=== PATIENT | female | born 1965 | race African-American/Black ===

== ENCOUNTER 2016-11-23 12:33 | Emergency (ER) ==
[2016-11-23 12:40] VITALS: BP 138/70
--- NOTE | 2016-11-23 14:03 | PROVIDER DOCUMENTATION ---
HPI-Chest Pain - General Source: patient - History of Present Illness-CP Location: reports: other (left anterior) Chest Pain Radiation: reports: no radiation Quality of Pain: reports: dull Severity in ED: moderate Onset/Duration: 2 days ago Timing: still present Nitro Today/Relief: no nitro taken today Aspirin Treatment Today: no aspirin today Similar Symptoms Previously?: No Recently Seen Here or By Another Healthcare Provider: Yes <Glory Jean - Last Filed: 11/23/16 15:30> <Cr Felipe - Last Filed: 11/23/16 15:39> - General Chief Complaint: B/P Problems Stated Complaint: B/P PROBLEMS Time Seen by Provider: 11/23/16 13:34 Allergies/Adverse Reactions: Patient Allergies Allergy/AdvReac Type Severity Reaction Status Date / Time aspirin Allergy ABDOMINAL Verified 02/03/16 09:16 PAIN diphenhydramine HCl * Allergy HIVES Verified 02/03/16 09:16 [From Benadryl] hydromorphone HCl * Allergy ITCHING Verified 02/03/16 09:16 [From Dilaudid] ibuprofen [From Motrin] Allergy ABDOMINAL Verified 02/03/16 09:16 PAIN Iodinated Contrast Media - Allergy HIVES Verified 02/03/16 09:16 Oral and ketorolac tromethamine * Allergy DIARRHEA Verified 02/03/16 09:16 [From Toradol] latex Allergy RASH Verified 02/03/16 09:16 Penicillins Allergy ITCHING Verified 02/03/16 09:16 Sulfa (Sulfonamide Allergy HIVES Verified 02/03/16 09:16 Antibiotics) tramadol HCl * [From Ultram] Allergy ITCHING Verified 02/03/16 09:16 Home Medications: Home Medication List Medication Instructions Recorded Confirmed Last Taken Type Alprazolam [Xanax] 1 mg PO QHS 07/20/15 02/03/16 10/18/15 12:00 History Hydrocodone/Acetaminophen [[place] 1 each PO Q6HR PRN 09/24/15 02/03/16 10/18/15 12:00 History 10-325 Tablet] Insulin Humulin 70/30 [Humulin 15 unit SQ BID 10/18/15 02/03/16 12/21/15 05:30 History 70/30] Clonidine [Catapres] 0.1 mg PO TID 02/03/16 02/03/16 Unknown History Guaifen/Dextromethorphan/PE 1 each PO TID #30 tablet 09/08/16 Unknown Rx [Deconex Dmx Tablet] Guaifenesin/Codeine Phosphate 10 ml PO Q4HR PRN #120 liquid 11/06/16 Unknown Rx [Cheratussin AC Syrup] Amlodipine Besylate [Norvasc] 10 mg PO 11/23/16 11/22/16 History - History of Present Illness-CP Nature of Presenting Problem: Pt presents in Triage with cc of Blood pressure problems on Exam pt doesn't mention blood pressure but rather reports a CC of chest pain left anterior x 2 days constant dull pain. Reports started at rest non radiating feels better while laying down. Reports headache,cough,vomiting, abd pain that is dull epigastric intermittent. Denies ent symptoms,urinary symptoms,sob,f,n. Reports 1 day of dark stools and unable keep food down.. Seen on November 16 wanted blood work done pt came today but was unable to do it so she came to ER. (Glory Jean) Review of Systems - Adult - REVIEW OF SYSTEMS - ADULT Constitutional: denies: chills, fever, fatique Eyes: reports: no symptoms reported Ears, Nose, Mouth & Throat: denies: ear pain, sinus problem, throat pain Cardiovascular: reports: chest pain. denies: irregular heart rate, orthopnea, syncope Respiratory: reports: cough. denies: shortness of breath, wheezing Gastrointestinal: reports: abdominal pain, vomiting. denies: diarrhea, difficulty swallowing, frequent heartburn, nausea, poor appetite Genitourinary: reports: no symptoms reported Musculoskeletal: reports: no symptoms reported Integumentary: reports: no symptoms reported Neurological: reports: headache/migraines. denies: dizziness/vertigo, paresthesia, seizure Psychiatric: reports: no symptoms reported Endocrine: reports: no symptoms reported Hematologic/Lymphatic: reports: no symptoms reported Allergic/Immunologic: reports: no symptoms reported All Other Systems: Reviewed and Negative <Glory Jean - Last Filed: 11/23/16 15:30> Past History - Adult - PAST MEDICAL HISTORY-ADULT Review of Records: reports: Nursing Assessment Review Major Childhood Illnesses: reports: denies history Cardiovascular: reports: cardiac disease, HTN Respiratory: reports: denies history Gastrointestinal: reports: denies history Obstetrical/Gynecological: reports: other (lmp 2 weeks ago) Genitourinary: reports: denies history Musculoskeletal: reports: chronic pain (back) Neurological: reports: CVA Psychiatric: reports: anxiety Endocrine/Immune: reports: Diabetes Other Conditions: reports: denies history - PRIOR SURGERIES/PROCEDURES Surgical/Procedure History: reports: appendectomy, cholecystectomy, hysterectomy , other (left ovary) - PRIOR HOSPITALIZATIONS Prior Hospitalizations: reports: for other non-related - IMMUNIZATION STATUS Childhood Immunizations: See Nurse Assessment Flu Vaccine: See Nurse Assessment - FAMILY HISTORY Family History: reviewed, not pertinent - SOCIAL HISTORY Smoking: cigarettes, less than 1 pack/day Provider spent 3-5 mins advising pt. on dangers of tobacco.: Discussed manners to quit use, and f/u contacts for add'l counseling. Substance Use: alcohol <Glory Jean - Last Filed: 11/23/16 15:30> Physical Exam-General - PHYSICAL EXAM-ADULT Initial Vital Signs Reviewed: Yes - CONSTITUTIONAL General Appearance: alert, no apparent distress. negative: appears well - EYES Eyes: PERRL/EOMI - HEAD, EARS, NOSE, MOUTH & THROAT HENMT: moist mucous membranes, normal ENT inspection, TMs normal, pharynx normal - RESPIRATORY Respiratory: chest non-tender, lungs clear, normal breath sounds, no pleuratic chest pain, no respiratory distress, no accessory muscle use - CARDIOVASCULAR Cardiovascular: regular rate, rhythm - GASTROINTESTINAL (ABDOMEN) Abdominal Exam: soft, no organomegaly, no pulsatile mass, tenderness (ttp lower abd). negative: mass, hepatomegaly, spleenomegaly - MUSCULOSKELETAL Back Exam: normal inspection, no CVA tenderness, no vertebral tenderness Extremity: normal range of motion, non-tender - SKIN Integumentary: normal color, normal turgor, warm/dry - NEUROLOGIC Neurologic: supervisor finish end II-XII nml as tested, grossly normal, no motor/sensory deficits - PSYCHIATRIC Psych/Mental Status: normal mood/affect, normal thought content, normal thought process, oriented x 3 <Glory Jean - Last Filed: 11/23/16 15:30> Progress - EKG 1 Time of EKG reading by physician:: 14:03 EKG Read and Signed by:: Cr Felipe EKG Interpretation (*Must complete 3 of following elements*): Abnormal (ST and Twave abnormality consider inferior ischemia) Rate: 74 Rhythm: nsr [place]: normal QRS: normal <Glory Jean - Last Filed: 11/23/16 15:30> <Cr Felipe - Last Filed: 11/23/16 15:39> - PLAN OF CARE/RESULTS Progress/Plan/Lab Results: Vital Signs - 24 hr 11/23/16 12:37 Temperature 98.3 F Pulse Rate 86 Respiratory 20 Rate Blood Pressure 138/70 O2 Sat by Pulse 100 Oximetry Laboratory Tests 11/23/16 12:48 POC Glucose 315 H D Orders Category Date Time Status CHEST-2 VIEWS [RAD] Stat Exams 11/23/16 13:55 Ordered CBC WITH DIFF [HEME] Stat Lab 11/23/16 13:55 Ordered COMPREHENSIVE METABOLIC PANEL [CHEM] Stat Lab 11/23/16 13:[address] W/POSS RFLX CULT [URINALYSIS] Stat Lab 11/23/16 13:55 Uncollected EKG [EKG] Stat Ther 11/23/16 13:57 Ordered Pt was sent from outpatient to have Blood pressure checked. Pt didnt inform nurses that she already had blood work,cxray and ekg done but that she didn't feel good. EKG labs and cxray was reviewed by MD Felipe Laboratory Tests 11/23/16 11/23/16 12:48 14:24 POC Glucose 315 H D Urine Source CLEAN CATCH Urine Color YELLOW Urine Clarity CLEAR Urine pH 5.0 Ur Specific [place] 1.015 Urine Protein TRACE A Urine Ketones NEGATIVE Urine Blood NEGATIVE Urine Nitrite NEGATIVE Urine Bilirubin NEGATIVE Urine Urobilinogen NORMAL Urine Microscopic RBC <10 Urine WBC 2+ A Urine Microscopic WBC 10-20 A Ur Epithelial Cells >10 A Urine Bacteria 1+ Urine Yeast PRESENT Urine Glucose 3+(500 mg/dL) A (Glory Jean) Urine specimen is heavily contaminated. (Cr Felipe) Departure - Departure Time of Disposition Order: 15:30 Certified Medical Emergency: Emergent <Glory Jean - Last Filed: 11/23/16 15:30> - Departure Time of Disposition Order: 15:36 Certified Medical Emergency: Emergent <Cr Felipe - Last Filed: 11/23/16 15:39> - Departure DIAGNOSIS: Malaise Disposition: HOME 01 Condition: Stable Additional Instructions: ED Follow Up Instructions: You have been treated by a care provider in the Emergency Department. These instructions are being provided to you so you can have an understanding of how to care for yourself upon discharge. Upon discharge from the Emergency Department, you are responsible for making arrangements for follow-up care by a physician of your choice. Take all prescribed medications as directed. Return to the Emergency Department immediately for any new or worsening symptoms. You may call the Physician Referral phone number at [phone] to obtain a list of Physicians who are taking new patients. Referrals: Chapin Avina MD [Primary Care Provider] - Attestation - Scribe Verification/Attestation Scribe:: Glory Jean Acting as Scribe for:: Cr Felipe Scribe documention review:: This chart was documented by a scribe and accurately reflects the service the provider performed and the decisions made by the provider. <Glory Jean - Last Filed: 11/23/16 15:30> Physician Attestation - Physician Attestation I, the provider, attest to the following statement:: Cr Felipe Physician documentation Attestation:: This documentation recorded by the scribe accurately reflects the service I personally performed and the decisions made by me. <Cr Felipe - Last Filed: 11/23/16 15:39>
[2016-11-23 14:31] LABS: URINE SOURCE CLEAN CATCH
--- NOTE | 2016-11-23 14:31 | EKG Report ---
Test Performed on : 11/23/2016 2:03:06 PM Test Reason : CP Blood Pressure : / mmHG Vent. Rate : 074 BPM Atrial Rate : 074 BPM P-R Int : 190 ms QRS Dur : 096 ms QT Int : 430 ms P-R-T Axes : 058 005 -73 degrees QTc Int : 477 ms Normal sinus rhythm. ST & T wave abnormality, consider inferior ischemia Prolonged QT Abnormal ECG When compared with ECG of 23-NOV-2016 11:48, (Unconfirmed) Borderline criteria for Anterior infarct are no longer present Unconfirmed Result
[2016-11-23 14:41] LABS: BILIRUBIN URINE NEGATIVE (NEGATIVE); BLOOD URINE NEGATIVE (NEGATIVE); CLARITY CLEAR (CLEAR); COLOR YELLOW; LEUKOCYTES URINE 2+ (NEGATIVE); NITRITE URINE NEGATIVE (NEGATIVE); PROTEIN URINE TRACE mg/dL (NEGATIVE); SP GRAVITY URINE 1.015; UROBILINOGEN URINE NORMAL
[2016-11-23 14:55] LABS: URINE EPITHELIAL CELLS >10 /HPF (<10); URINE RBC <10 /HPF (<10)
[2016-11-23 14:56] LABS: URINE CULTURE PL NEEDED? YES
== END 2016-11-23 16:05 | disposition home or self-care (01) ==
LOC: P.ED 12:33
DX: R53.81 Other malaise (principal); R94.31 Abnormal electrocardiogram [ECG] [EKG]; R07.89 Other chest pain; R51 Headache; R05 Cough; R11.10 Vomiting, unspecified; R10.13 Epigastric pain; R19.5 Other fecal abnormalities; R10.819 Abdominal tenderness, unspecified site; I10 Essential (primary) hypertension; G89.29 Other chronic pain; M54.9 Dorsalgia, unspecified; E11.9 Type 2 diabetes mellitus without complications; F41.9 Anxiety disorder, unspecified; F17.210 Nicotine dependence, cigarettes, uncomplicated; Z79.4 Long term (current) use of insulin; Z79.899 Other long term (current) drug therapy; Z71.6 Tobacco abuse counseling
CPT/HCPCS: 81001; 82948; 87088; 93005; 99283

== ENCOUNTER 2017-05-07 13:19 | Inpatient (IN) ==
[2017-05-07 15:34] LABS: BASO% 0.2 % (0.0-0.8); EOS# 0.01 X1000 (0.0-0.7); HEMATOCRIT 41.7 % (37.0-47.0); HEMOGLOBIN 14.5 g/dL (12.0-16.0); IMM GRAN# 0.07 X1000 (0.0-0.04); IMM GRAN% 0.3 % (0.0-0.5); LYMPH# 1.64 X1000 (1.2-3.4); LYMPH% 6.1 % (20.5-51.1); MANUAL DIFF NEEDED? NO; MCH 27.7 PG (27-31); MCHC 34.8 g/dL (33-37); MCV 79.6 FL (81-99); MONO# 1.01 X1000 (0.11-0.59); MONO% 3.8 % (1.7-9.3); MPV 11.7 FL (7.4-10.4); NEUT% 89.6 % (42.2-75.2); PLT 234 X1000 (130-400); RBC 5.24 XMIL (4.2-5.4)
[2017-05-07] MEDS ORDERED: ZOFRAN IV ONE (15:44)
[2017-05-07] MEDS ORDERED: NS 1,000 ML IV ONE (15:44)
[2017-05-07 15:53] LABS: ALBUMIN 4.8 g/dL (3.5-5.0); CALCIUM 10.1 mg/dL (8.8-10.2); POTASSIUM 3.5 mmol/L (3.5-5.1); TOTAL BILIRUBIN 0.5 mg/dL (0.20-1.00); TOTAL PROTEIN 10.3 g/dL (6.3-8.3)
[2017-05-07] MEDS ORDERED: HUMULIN R IV ONE (15:59)
[2017-05-07 16:14] LABS: BE 9.2 mmoll (-3.0-3.0); BLOOD TYPE ARTERIAL; METHB 1.4 % (0.0-1.5); O2(CT) 18.9 mL/dL (15.0-23.0); PCO2(98.6) 43 mmHg (35-45); PO2(98.6) 60 mmHg (60-100); SAMPLE BLOOD; SAO2 95.2 % (95.0-100.0); THB 14.7 g/dL (11.5-17.4)
[2017-05-07 16:18] LABS: ALLEN TEST YES; DRAW SITE L RADIAL; MODALITY ROOM AIR
[2017-05-07] MEDS ORDERED: LABETALOL IV ONE (16:31)
--- NOTE | 2017-05-07 16:55 | PROVIDER DOCUMENTATION ---
This chart was entered by Jaquelin Bragg Scribe, acting as scribe for Quique Espinosa MD. HPI-General Adult - General Chief Complaint: N/V/D Stated Complaint: VOMITING Time Seen by Provider: 05/07/17 14:56 Source: patient Allergies/Adverse Reactions: Patient Allergies Allergy/AdvReac Type Severity Reaction Status Date / Time aspirin Allergy ABDOMINAL Verified 04/24/17 12:31 PAIN diphenhydramine HCl * Allergy HIVES Verified 04/24/17 12:31 [From Benadryl] hydromorphone HCl * Allergy ITCHING Verified 04/24/17 12:31 [From Dilaudid] ibuprofen [From Motrin] Allergy ABDOMINAL Verified 04/24/17 12:31 PAIN Iodinated Contrast- Oral and Allergy HIVES Verified 04/24/17 12:31 IV Dye ketorolac tromethamine * Allergy DIARRHEA Verified 04/24/17 12:31 [From Toradol] latex Allergy RASH Verified 04/24/17 12:31 Penicillins Allergy ITCHING Verified 04/24/17 12:31 Sulfa (Sulfonamide Allergy HIVES Verified 04/24/17 12:31 Antibiotics) tramadol HCl * [From Ultram] Allergy ITCHING Verified 04/24/17 12:31 Home Medications: Home Medication List Medication Instructions Recorded Confirmed Last Taken Type Clonidine [Catapres] 0.3 mg PO TID 02/03/16 04/24/17 04/24/17 07:00 History Amlodipine Besylate [Norvasc] 20 mg PO DAILY 11/23/16 04/24/17 04/24/17 07:00 History - History of Present Illness -Gen Adult Nature of Presenting Problems: Patient is 52 year old female presents to the ED with nausea, vomiting and diarrhea. Patient states symptoms have been present since this am. Patient denies abdominal pain. Patient states fever and chills. Location of Pain/Injury: reports: none Pain Radiation: reports: no radiation Quality of Pain: reports: none Severity: reports: mild Onset/Duration: reports: this morning Timing: reports: still present Context/Activities at Onset: reports: light activity Modifying Factors: improves with: nothing Associated Symptoms: reports: diarrhea, nausea, vomiting. denies: anxiety, arm pain, back/neck pain, chest pain, constipation, cough, diaphoresis, dizziness, EENT symptoms, fatigue, fever/chills, genitourinary problems, headaches, heartburn, joint pain, loss of appetite, malaise, muscle aches, sinus congestion /drainage, rash, seizure, shortness of breath, sensory/motor loss, pain with inspiration, swelling/mass in abdomen, syncope, weakness, trouble walking Similar Symptoms Previously?: Yes (present since this am ) Recently seen or treated by another doctor?: No Review of Systems - Adult - REVIEW OF SYSTEMS - ADULT Constitutional: reports: no symptoms reported Eyes: reports: no symptoms reported Ears, Nose, Mouth & Throat: reports: no symptoms reported Cardiovascular: reports: no symptoms reported Respiratory: reports: no symptoms reported Gastrointestinal: reports: diarrhea, nausea, vomiting. denies: abdominal pain Genitourinary: reports: no symptoms reported Musculoskeletal: reports: no symptoms reported Integumentary: reports: no symptoms reported Neurological: reports: no symptoms reported Psychiatric: reports: no symptoms reported Endocrine: reports: no symptoms reported Hematologic/Lymphatic: reports: no symptoms reported Allergic/Immunologic: reports: no symptoms reported All Other Systems: Reviewed and Negative Past History - Adult - PAST MEDICAL HISTORY-ADULT Review of Records: reports: Nursing Assessment Review, Medications Reviewed, Social history reviewed & non-contributory. Major Childhood Illnesses: reports: denies history Cardiovascular: reports: cardiac disease, HTN, [place] Respiratory: reports: denies history Gastrointestinal: reports: denies history Obstetrical/Gynecological: reports: other (lmp 2 weeks ago) Genitourinary: reports: denies history Musculoskeletal: reports: chronic pain (back) Neurological: reports: CVA Psychiatric: reports: anxiety Endocrine/Immune: reports: Diabetes Other Conditions: reports: denies history - PRIOR SURGERIES/PROCEDURES Surgical/Procedure History: reports: appendectomy, cholecystectomy, hysterectomy , other (left ovary) - PRIOR HOSPITALIZATIONS Prior Hospitalizations: reports: for other non-related - IMMUNIZATION STATUS Childhood Immunizations: See Nurse Assessment Flu Vaccine: See Nurse Assessment - FAMILY HISTORY Family History: reviewed, not pertinent - SOCIAL HISTORY Smoking: cigarettes, less than 1 pack/day Provider spent 3-5 mins advising pt. on dangers of tobacco.: Discussed manners to quit use, and f/u contacts for add'l counseling. Substance Use: alcohol, marijuana Alcohol Use Frequency: occasionally Number of drinks per typical drinking period:: 2 drinks Living Situation: family Physical Exam-General - PHYSICAL EXAM-ADULT Initial Vital Signs Reviewed: Yes - CONSTITUTIONAL General Appearance: alert, no apparent distress. negative: lethargic, slow to respond - EYES Eyes: PERRL/EOMI, pink conjunctivae. negative: pale conjunctivae, sunken eyes - HEAD, EARS, NOSE, MOUTH & THROAT HENMT: normocephalic/atraumatic, moist mucous membranes, normal ENT inspection. negative: angioedema, hearing deficit - NECK Neck: non-tender, normal inspection. negative: lymphadenopathy, tender lateral - RESPIRATORY Respiratory: chest non-tender, lungs clear, normal breath sounds. negative: crackles, rhonchi - CARDIOVASCULAR Cardiovascular: normal peripheral pulses, regular rate, rhythm. negative: bradycardia, tachycardia - GASTROINTESTINAL (ABDOMEN) Abdominal Exam: normal bowel sounds, non tender, soft. negative: distended, rebound - LYMPHATIC Lymphatic: no adenopathy. negative: enlargement, streaking - MUSCULOSKELETAL Back Exam: normal inspection. negative: ecchymosis, muscle spasm Extremity: normal range of motion, normal inspection. negative: deformity, erythema, swelling - SKIN Integumentary: normal color, normal turgor, warm/dry. negative: ecchymosis, erythema, swelling - NEUROLOGIC Neurologic: grossly normal. negative: aphasia, facial droop - PSYCHIATRIC Psych/Mental Status: normal mood/affect, oriented x 3. negative: paranoid, tearful Progress - PLAN OF CARE/RESULTS Progress/Plan/Lab Results: Vital Signs - 8 hr 05/07/17 13:28 Temperature 98 F Pulse Rate 114 H Respiratory Rate 18 O2 Sat by Pulse Oximetry 100 Orders Category Date Time Status Saline Loc DIRECTED Care 05/07/17 14:39 Active NPO Diet 05/07/17 14:39 Active AMYLASE [CHEM] Stat Lab 05/07/17 14:39 Ordered CBC WITH ELECTRONIC DIFF [HEME] Stat Lab 05/07/17 14:39 Ordered COMPREHENSIVE METABOLIC PANEL [CHEM] Stat Lab 05/07/17 14:39 Ordered LIPASE [CHEM] Stat Lab 05/07/17 14:[address] W/POSS RFLX CULT [URINALYSIS] Stat Lab 05/07/17 14:39 Uncollected URINE DRUG SCREEN PL Stat Lab 05/07/17 14:39 Uncollected Result Diagrams: 05/07/17 15:20 05/07/17 15:20 - CONSULTS/PCP/HOSPITALIST Notification #1 *Consult/PCP/Hospitalist*: Dr. Mantilla Time Discussed: 16:51 Consult Disposition: Will see in ED, Admit Departure - Departure Date of Disposition Decision: 05/07/17 Time of Disposition Decision: 16:51 DIAGNOSIS: Renal failure, Hyperglycemia, Nausea & vomiting Disposition: ADMITTED INPATIENT 09 Certified Medical Emergency: Emergent Condition: Stable Referrals and Follow-Ups: Chapin Avina MD [Primary Care Provider] - - Critical Care Note This patient required my direct & personal management of CC.: Yes Total Time (mins): 30 Critical Care Statement: This patient required my direct personal management to treat or rule out processes, the absence of which, could potentiallly result in sudden, clinically significant life or limb threatening deterioration. Attestation - Physician/ KATE Attestation Patient care was provided by Advanced Practice Provider:: No The physician spent face to face time with patient:: Yes Advanced Practice Provider documentation review:: Supervising physician onsite and consulted in the evaluation and care of this patient. The physician did have a face to face encounter with the patient. This chart was documented by the indicated scribe, (Jaquelin Bragg Scribe) and accurately reflects the services I performed and decisions made by me, Quique Espinosa MD, as attested by the provider's signature.
--- NOTE | 2017-05-07 17:25 | Diag Imaging Result Doc PS360 ---
EXAM: CT RENAL STONE SEARCH HISTORY: N/V/leukocytosis TECHNIQUE: CT abdomen and pelvis without contrast. Dose reduction protocol. COMPARISON: 10/18/2015 FINDINGS: Suboptimal exam without oral and intravenous contrast. There is an 18 mm nodule inferiorly in the left lung. I believe this is anteriorly in the left lower lobe. This was present on the prior exam and is similar to the prior study. There is thickening to the wall of the distal esophagus. The gallbladder has been removed. Normal noncontrasted liver. The spleen is small. No abnormality to the pancreas. Normal adrenal glands. No renal stones. No hydronephrosis. No aortic aneurysm. No bowel obstruction. Urinary bladder is distended and appears normal. The uterus has been removed. No abscess. IMPRESSION: 1.Stable left lower lobe pulmonary nodule 2.Thickening to the wall of the distal esophagus which may simply be related to esophagitis. Further workup recommended. 3.Cholecystectomy 4.No renal stones or hydronephrosis 5.Hysterectomy Electronically signed by Coleman Connolly 05/07/2017 5:22 PM
--- NOTE | 2017-05-07 17:26 | Diag Imaging Result Doc PS360 ---
EXAM: CHEST-PORTABLE HISTORY: N/V/Leukocytosis TECHNIQUE: AP COMPARISON: 11/23/2016 FINDINGS: The lungs are well expanded. The heart is not enlarged. The vessels are not distended. No consolidation. There are two nodules in the lower left lung. These were present on the prior exam and have not increased in size. Mild scoliosis. IMPRESSION: No pneumonia. Electronically signed by Coleman Connolly 05/07/2017 5:23 PM
[2017-05-07] MEDS ORDERED: APRESOLINE IV ONE (17:35)
[2017-05-07] MEDS ORDERED: ZOFRAN IV PRN (18:06)
[2017-05-07] MEDS ORDERED: SODIUM CHLORIDE 0.9% INJ SCH (18:15)
[2017-05-07] MEDS ORDERED: APRESOLINE IV PRN (18:49)
[2017-05-07 18:59] LABS: URINE CULTURE PL NEEDED? NO
[2017-05-07 19:13] LABS: UR AMPHETAMINES QUAL NONE DETECTED (NONE DETECT); UR BARBITUATES QUAL NONE DETECTED (NONE DETECT)
[2017-05-07 19:14] LABS: UR BENZODIAZEPIN QUAL PRESUMPTIVE POSITIVE (NONE DETECT); UR CANNABINOIDS QUAL PRESUMPTIVE POSITIVE (NONE DETECT); UR COCAINE QUAL NONE DETECTED (NONE DETECT); UR MDMA QUAL NONE DETECTED (NONE DETECT); UR METHADONE QUAL NONE DETECTED (NONE DETECT); UR METHAMPHETAMINE QUAL NONE DETECTED (NONE DETECT); UR OPIATES QUAL PRESUMPTIVE POSITIVE (NONE DETECT); UR OXYCODONE QUAL NONE DETECTED (NONE DETECT); UR PCP QUAL NONE DETECTED (NONE DETECT); UR TCA QUAL NONE DETECTED (NONE DETECT)
[2017-05-07 19:18] LABS: BILIRUBIN URINE NEGATIVE (NEGATIVE); BLOOD URINE 3+ (NEGATIVE); CLARITY CLEAR (CLEAR); COLOR YELLOW; LEUKOCYTES URINE TRACE (NEGATIVE); NITRITE URINE NEGATIVE (NEGATIVE); PH URINE 6.5; PROTEIN URINE 2+(100 mg/dL) mg/dL (NEGATIVE); UROBILINOGEN URINE NORMAL
[2017-05-07 19:19] LABS: URINE EPITHELIAL CELLS <10 /HPF (<10); URINE RBC <10 /HPF (<10); URINE SOURCE CLEAN CATCH; URINE WBC <10 /HPF (<10)
[2017-05-07] MEDS: LEVAQUIN 500 MG/D5W 500 MG/100 ML IVPB IV SCH (20:06)
[2017-05-07] MEDS: NS 1,000 ML IV SCH (20:06)
[2017-05-07] MEDS: CATAPRES PO SCH (20:07)
[2017-05-07] MEDS: PROTONIX IV SCH (20:07)
[2017-05-07] MEDS: NORVASC PO SCH (20:08)
[2017-05-07] MEDS: HUMALOG DOSE (PARKWAY) SUBQ SCH (21:59)
[2017-05-08] MEDS: CATAPRES PO SCH ×3 (02:32→18:03)
--- NOTE | 2017-05-08 03:55 | PROGRESS NOTE ---
DATE: 05/07/2017 ADDENDUM: Patient was admitted. She was seen in the ER. The care plan discussed with nurse practitioner. Patient will be admitted, IV fluids, antibiotics. She is having some abdominal pain and diffuse tenderness, occasional chills. Further orders as needed. cc: Herb Mantilla MD
[2017-05-08] MEDS: TYLENOL PO PRN ×3 (04:57→20:51)
[2017-05-08] MEDS: NS 1,000 ML IV SCH ×3 (06:10→16:32)
[2017-05-08 06:25] LABS: HEMATOCRIT 38.3 % (37.0-47.0); HEMOGLOBIN 12.8 g/dL (12.0-16.0); MCH 26.9 PG (27-31); MCHC 33.4 g/dL (33-37); MCV 80.6 FL (81-99); MPV 11.5 FL (7.4-10.4); RBC 4.75 XMIL (4.2-5.4)
[2017-05-08] MEDS: HUMALOG DOSE (PARKWAY) SUBQ SCH ×4 (06:31→20:47)
[2017-05-08 06:42] LABS: ALBUMIN 4.2 g/dL (3.5-5.0); CALCIUM 9.6 mg/dL (8.8-10.2); MAGNESIUM 1.7 mg/dL (1.5-2.7); POTASSIUM 3.3 mmol/L (3.5-5.1); TOTAL BILIRUBIN 0.5 mg/dL (0.20-1.00); TOTAL PROTEIN 8.8 g/dL (6.3-8.3)
[2017-05-08] MEDS: NORVASC PO SCH (09:51)
--- NOTE | 2017-05-08 16:14 | PROGRESS NOTE ---
DATE: 05/08/2017 SUBJECTIVE: Ms. Rivas is sitting up in the bed, watching TV. She has no complaints at present. She denies any further nausea, vomiting or diarrhea. No abdominal pain. No issues. OBJECTIVE: Vital Signs: Blood pressure is 169/79 with a heart rate of 100. Respirations are 20, temperature is 98.4 oral with room air saturations of 100%. Cardiovascular: Regular rate and rhythm. S1, S2 appreciated. Pulmonary: Breath sounds are clear. No increased work of breathing noted. Gastrointestinal: Abdomen is soft, nondistended, nontender with bowel sounds in all 4 quadrants. Extremities: No clubbing, cyanosis, or edema. Calves are nontender. Pulses are palpable x4. Neurologic: She is alert and oriented x3 with cranial nerves 2-12 grossly intact. DIAGNOSTICS: WBC is 26.9, with a hemoglobin of 12.8, hematocrit 38.3, and platelets of 209. Sodium is 139, potassium 3.3, BUN 30, creatinine 1.8 with glucose ranging from 190-280. Alkaline phosphatase has decreased to 130 with blood cultures pending. ASSESSMENT AND PLAN: 1. Nausea, vomiting and diarrhea. This has improved. She has had no further nausea or vomiting. She has had 1 episode of diarrhea. We will continue to follow. 2. Acute kidney injury. Creatinine has decreased to 1.8 and review of her labs, she has been 1.2- 1.6 over the last 3 years. She is 1.8 today. We will continue with gentle hydration renal dose any medications and trend labs. 3. Hypertension. We will continue her home medications. 4. Diabetes mellitus. We will continue with pattern blood glucose with sliding scale insulin. 5. Deep vein thrombosis prophylaxis. Will continue with sequential compression devices. 6. Gastrointestinal prophylaxis, Protonix. 7. We will trend labs in the morning. Dictated by LEEANNA Mathews for Herb Mantilla MD cc: LEEANNA Mathews MD
--- NOTE | 2017-05-08 17:13 | HISTORY AND PHYSICAL ---
CHIEF COMPLAINT: Nausea, vomiting and diarrhea. HISTORY OF PRESENT ILLNESS: This is a 52-year-old female who presented to the emergency room complaining of nausea, vomiting and diarrhea that started earlier in the day. She does complain of subjective fevers. She denies any known sick contacts. Renal CT was performed in the emergency room which revealed thickening to the wall of the distal esophagus which may represent esophagitis. Otherwise essentially negative. She was noted to have a white count of 26 with a creatinine of 2 and blood sugars are ranging in the 250-480 range. She was given IV fluids, IV insulin and admitted for further evaluation and treatment. PAST MEDICAL HISTORY: Diabetes mellitus type 2, COPD, known CAD, hypertension history of CVA. PAST SURGICAL HISTORY: Cholecystectomy and hysterectomy. SOCIAL HISTORY: She lives with family. She smokes about a half pack of cigarettes a day. She denies routine alcohol use. She does state that she drinks socially. She does use marijuana. ALLERGIES: Aspirin, Benadryl, Dilaudid, Motrin, IV contrast, Toradol, latex, penicillin, sulfa and tramadol. HOME MEDICATIONS: Clonidine 0.1 t.i.d., Norvasc 10 daily, alprazolam 1 mg b.i.d., [place] 10/325 1 b.i.d. p.r.n. REVIEW OF SYSTEMS: A 14 point review of systems is discussed with the patient with pertinent positives stated in the HPI. She denied any chest pain, palpitations, syncope, dizziness, any shortness of breath, cough, PND, orthopnea, black or bloody vomitus, black or bloody stools, any hematuria, dysuria, frequency, or urgency. PHYSICAL EXAMINATION: GENERAL: This is a 52-year-old female who is sitting up in the bed, in no distress. VITAL SIGNS: Blood pressure is 193/94 with a heart rate of 102, respirations are 18, temperature is 98.4 degrees oral with room air saturations 100%. CARDIOVASCULAR: Regular rate and rhythm. S1 and S2 are appreciated. PULMONARY: Breath sounds are clear with no increased work of breathing noted. GASTROINTESTINAL: Abdomen is soft, nontender, nondistended with bowel sounds in all 4 quadrants. BACK: No CVAT. No spine tenderness. EXTREMITIES: No clubbing, cyanosis, or edema. Calves nontender. Pulses are palpable x4. NEUROLOGIC: She is alert and oriented x3 with cranial nerves 2-12 grossly intact. LABS: WBC is 26.86 with a hemoglobin of 14.5, hematocrit 41.7 and platelets of 234,000. Sodium is 140, potassium 3.5. BUN 30, creatinine 2 with a glucose of 481. Urinalysis 3+ of blood with less than 10 microscopic red blood cells, and less than 10 microscopic white blood cells. She does have 3+ glucose. Urine drug screen is positive for cannabinoids, benzodiazepines and opiates. Chest x-ray, the lungs are well expanded. Heart is not enlarged. Vessels are not distended. No consolidation. There are 2 nodules in the left lower lung that were present on the prior exam of 11/23/2016 and have not increased in size. Renal CT revealed a stable left lower lobe pulmonary nodule when compared to a 2016 scan. Thickening of the distal esophagus which may be related to esophagitis. Cholecystectomy. No renal stones or hydronephrosis. Hysterectomy. Blood cultures are pending. ASSESSMENT AND PLAN: 1. Nausea, vomiting and diarrhea. 2. Hypertension. 3. Diabetes type 2 with hyperglycemia. 4. Leukocytosis. 5. COPD. 6. Known coronary artery disease. 7. Acute kidney injury. PLAN: She will be admitted to the hospital. Placed on telemetry. She will be NPO at present. We will give IV hydration. We will give Zofran for nausea. Blood cultures are pending. We will start Levaquin IV and once cultures return results will drive further antibiotics. She will be placed on pattern blood glucose with sliding scale insulin. We will continue her home medications with hydralazine p.r.n. We will renal dose medications and trend labs. Further treatments pending hospital course. Dictated by LEEANNA Mathews for Herb Mantilla MD cc: LEEANNA Mathews MD
[2017-05-08] MEDS: LEVAQUIN 500 MG/D5W 500 MG/100 ML IVPB IV SCH (18:02)
[2017-05-08] MEDS: PROTONIX IV SCH (18:03)
[2017-05-09] MEDS: CATAPRES PO SCH ×3 (02:03→18:10)
[2017-05-09] MEDS: TYLENOL PO PRN (05:54)
[2017-05-09] MEDS: NS 1,000 ML IV SCH ×4 (05:56→22:18)
[2017-05-09] MEDS: HUMALOG DOSE (PARKWAY) SUBQ SCH ×4 (06:21→20:56)
[2017-05-09 07:17] LABS: HEMATOCRIT 37.3 % (37.0-47.0); HEMOGLOBIN 12.7 g/dL (12.0-16.0); MCH 27.8 PG (27-31); MCV 81.6 FL (81-99); MPV 11.6 FL (7.4-10.4); RBC 4.57 XMIL (4.2-5.4)
[2017-05-09 07:35] LABS: POTASSIUM 3.4 mmol/L (3.5-5.1)
[2017-05-09] MEDS: NORVASC PO SCH (08:32)
[2017-05-09] MEDS: DEMEROL IV PRN ×2 (10:19→18:10)
[2017-05-09] MEDS: LEVAQUIN 500 MG/D5W 500 MG/100 ML IVPB IV SCH (18:09)
[2017-05-09] MEDS: PROTONIX IV SCH (18:10)
--- NOTE | 2017-05-09 19:55 | PROGRESS NOTE ---
DATE: 05/09/2017 SUBJECTIVE: Patient still with some abdominal pain right upper quadrant and right lower quadrant. Notes that her nausea is better. Denies any fevers or chills. OBJECTIVE: Vital Signs: Reviewed and stable. General: She is awake, alert. She is in no respiratory distress. Neck: Supple. CV: Regular rate. Chest: Clear. Abdomen: Soft, nondistended. No guarding. No rebound. She is mildly tender in the right upper quadrant, as well as the right lower quadrant. Extremities: Moves all extremities. Neurologic: No focal changes. Skin: Warm and dry. No rashes. ASSESSMENT: 1. Abdominal pain. Uncertain etiology. 2. Chronic stage 2 renal failure with acute worsening; has improved back to her baseline. 3. Leukocytosis, improving. 4. Nausea and vomiting. PLAN: Will continue the patient in the hospital. We will check a CT of her abdomen. She is allergic to IV dye so the CT may not be very helpful. Will continue to follow. Further orders as needed. cc: Herb Mantilla MD
[2017-05-10] MEDS: DEMEROL IV PRN ×3 (01:55→11:21)
[2017-05-10] MEDS: CATAPRES PO SCH ×3 (02:04→18:17)
[2017-05-10] MEDS: NS 1,000 ML IV SCH (04:32)
[2017-05-10] MEDS: HUMALOG DOSE (PARKWAY) SUBQ SCH ×4 (06:25→21:34)
[2017-05-10] MEDS ORDERED: NS 1,000 ML IV SCH (06:38)
[2017-05-10 06:58] LABS: HEMOGLOBIN 14.3 g/dL (12.0-16.0); MCH 27.7 PG (27-31); MCV 81.2 FL (81-99); MPV 11.3 FL (7.4-10.4); RBC 5.17 XMIL (4.2-5.4)
[2017-05-10 07:30] LABS: ALBUMIN 4.2 g/dL (3.5-5.0); CALCIUM 9.3 mg/dL (8.8-10.2); MAGNESIUM 1.4 mg/dL (1.5-2.7); POTASSIUM 3.3 mmol/L (3.5-5.1); TOTAL BILIRUBIN 0.6 mg/dL (0.20-1.00); TOTAL PROTEIN 8.2 g/dL (6.3-8.3)
[2017-05-10] MEDS: NORVASC PO SCH (08:25)
[2017-05-10] MEDS: XANAX PO SCH ×2 (08:25→21:35)
[2017-05-10] MEDS ORDERED: CATAPRES PO SCH (09:00)
[2017-05-10] MEDS ORDERED: ZOFRAN ODT PO PRN (11:23)
[2017-05-10] MEDS ORDERED: CARAFATE PO SCH (13:00)
[2017-05-10] MEDS: CARAFATE PO SCH ×2 (15:34→21:34)
[2017-05-10] MEDS: NORCO-10 PO PRN (15:34)
--- NOTE | 2017-05-10 20:07 | PROGRESS NOTE ---
DATE: 05/10/2017 SUBJECTIVE: Patient without any new complaints. Notes that she is starting to drink a little bit better. States the right upper and lower quadrant pain is better. Denies any fevers or chills. OBJECTIVE: Vital Signs: Reviewed. She is afebrile. Blood pressure is stable. Heart rate stable. General: Patient is awake, alert, oriented. She is currently in no respiratory distress. Neck: Supple. CARDIOVASCULAR: Regular rate. Chest: Clear. Abdomen: Soft. She has much less tenderness in the right upper and right lower quadrant. Positive bowel sounds. No masses. No hepatosplenomegaly. Extremities: Moves all extremities. Neurologic: No focal changes. Skin: Warm and dry. No rashes. ASSESSMENT: 1. Right upper quadrant pain. 2. Right lower quadrant pain. 3. Acute on chronic renal failure, resolved. She is currently back to her chronic renal failure. 4. Esophagitis. PLAN: We will continue gastrointestinal soft diet. We will continue Carafate. We will cell changer to by mouth antibiotics. We will saline lock. Hopefully home tomorrow. cc: Herb Mantilla MD
[2017-05-10] MEDS: PRILOSEC PO SCH (21:35)
[2017-05-11] MEDS: CATAPRES PO SCH (02:48)
[2017-05-11] MEDS: NORCO-10 PO PRN (04:59)
[2017-05-11] MEDS: CARAFATE PO SCH (06:38)
[2017-05-11] MEDS: HUMALOG DOSE (PARKWAY) SUBQ SCH (06:38)
[2017-05-11 08:18] VITALS: BP 160/102
[2017-05-11] MEDS: PRILOSEC PO SCH (08:54)
[2017-05-11] MEDS: NORVASC PO SCH (08:54)
[2017-05-11] MEDS: XANAX PO SCH (08:54)
[2017-05-11] MEDS ORDERED: LEVAQUIN PO SCH (18:00)
--- NOTE | 2017-05-11 22:22 | DISCHARGE SUMMARY ---
ADMISSION DATE: 05/07/2017 DISCHARGE DATE: 05/11/2017 DATE OF ADMISSION: . DATE OF DISCHARGE: 05/11/2017. DIAGNOSES: 1. Nausea/vomiting/diarrhea, resolved. 2. Hypertension. 3. Right upper and lower quadrant pain, improving. 4. Diabetes type 2 with hyperglycemia. 5. Chronic obstructive pulmonary disease. 6. Known coronary artery disease. 7. Acute kidney injury on chronic renal failure, resolved (patient's baseline creatinine is 1.3- 1.6). DIAGNOSTICS: 05/07/2017 chest x-ray: Revealed no pneumonia. 05/07/[address]: Revealed: 1. Stable left lower lobe pulmonary nodule. 2. Thickening of the distal esophagus which may be related to esophagitis. 3. Cholecystectomy. 4. No renal stones or hydronephrosis. 5. Hysterectomy. MICROBIOLOGY: Blood cultures: Revealed no growth after 48 hours. HOSPITAL COURSE: Ms. Rivas presented to the emergency room complaining of nausea, vomiting, and diarrhea with subjective fevers. She was found to have a white blood cell count of 26. Blood cultures were drawn, which revealed no growth. She received IV coverage of Levaquin. White count did decrease and it was 16 on the 24th. She remained afebrile. Creatinine was 2 on admission. After hydration, she is down to 1.3. Her norm as reviewed in her chart for the past few years has been 1.3-1.6. Her magnesium was followed and repleted as appropriate, as was her potassium. We did cover blood sugars with sliding scale insulin. She did state that her blood sugars are controlled with diet but they do elevate when she is sick and when she is on steroids. At present, she is not on any oral antidiabetic medications. She does not wish for any to be started by us. She states that this will be discussed with Dr. Avina. She did tolerate a GI soft diet with no further nausea or vomiting. And thankfully she had been up walking in the room and in the roberts and is requesting to go home. DISCHARGE MEDICATIONS: 1. Clonidine 0.1 t.i.d. 2. Norvasc 10 daily. 3. Carafate 1 g before meals and at bedtime. 4. Levaquin 500 mg daily at 6 o'clock. 5. [place] 10/325 b.i.d. p.r.n. 6. Norvasc 10 daily. 7. Alprazolam 1 mg b.i.d. PHYSICAL EXAM: Cardiovascular: Regular rate and rhythm. S1 and S2 appreciated. Pulmonary: Breath sounds are clear. No increased work of breathing noted. Gastrointestinal: Abdomen is soft, nontender, nondistended with bowel sounds in all 4 quadrants. Extremities : No clubbing, cyanosis, or edema. Calves nontender and pulses are palpable x4. Neurologic: She is alert and oriented x3 with cranial nerves 2-12 grossly intact. Vital Signs: Blood pressure is 149/85 with a heart rate of 91, respirations are 20, temperature is 98.8 degrees oral with room air saturation of 100%. FOLLOWUP: She is to follow Dr. Avina in the next week. At that time, she can discuss the hospitalization as well as she can discuss diabetic treatment, as she did not want any instituted until she speaks to Dr. Avina. DISPOSITION: She is being discharged home in stable condition with family members. TIME SPENT: This is a greater than 30 minute discharge. Dictated by LEEANNA Mathews for Herb Mantilla MD cc: LEEANNA Mathews MD [facility] [place] [facility]
== END 2017-05-11 11:05 | disposition home or self-care (01) ==
LOC: P.ED 13:19 → P.MEDSURG 18:10
PROVIDERS: ATTEND Family Medicine

== ENCOUNTER 2019-05-15 11:52 | Inpatient (IN) ==
--- NOTE | 2019-05-15 12:45 | Diag Imaging Result Doc PS360 ---
EXAM: CT HEAD W/O CONTRAST 05/15/2019 HISTORY: weakness on right side TECHNIQUE: This exam was performed using automated exposure control, adjustment of mA or kV according to patient size, and/or use of iterative reconstruction technique. COMMENT: There is no evidence of mass effect or bleed. There is considerable encephalomalacia in the left parietal and posterior frontal cortex and subcortical white matter. There is also a fairly large lacune measuring over 14 mm in the left temporal lobe. There is a smaller lacune present in the thalamus on the right. There is also some cortical and subcortical encephalomalacia in the right posterior parietal convexity. There is periventricular white matter lucency particularly around the frontal horns and worse on the left than right. These findings were also present at the time the previous examination of 04/23/2019. There is a focus of lucency in the cortex and subcortical white matter seen best on image 39 in the anterior parietal convexity on the left. This was not demonstrated on the previous study. IMPRESSION: Extensive chronic ischemic change as described. Apparent new cortical and subcortical lucency in the anterior left parietal lobe. Given the findings, further evaluation with MRI may be desirable. Electronically signed by Musa Whiting 05/15/2019 12:43 PM
--- NOTE | 2019-05-15 12:59 | Diag Imaging Result Doc PS360 ---
EXAM: CHEST-PORTABLE 05/15/2019 HISTORY: CVA TECHNIQUE: AP portable upright at 1305 COMMENT: There are two nodules in the left lower chest one is partially obscured by the heart border and the other in the costophrenic angle region. This has not changed significantly since 04/23/2019. Otherwise there is no evidence of acute cardiac or pulmonary disease. There is a sclerotic focus in the upper shaft of the left humerus which has not changed since 04/11/2018. IMPRESSION: Stable chest. Electronically signed by Musa Whiting 05/15/2019 12:56 PM
[2019-05-15 14:33] LABS: ACETONE SERUM NEGATIVE (NEGATIVE)
[2019-05-15 14:36] LABS: BASO# 0.06 X1000 (0.0-0.2); BASO% 0.4 % (0.0-0.8); EOS# 0.13 X1000 (0.0-0.7); EOS% 0.9 % (0.0-10.0); HEMATOCRIT 39.2 % (37.0-47.0); HEMOGLOBIN 12.8 g/dL (12.0-16.0); IMM GRAN# 0.03 X1000 (0.0-0.04); IMM GRAN% 0.2 % (0.0-0.5); LYMPH# 3.97 X1000 (1.2-3.4); LYMPH% 28.8 % (20.5-51.1); MCH 27.1 PG (27-31); MCHC 32.7 g/dL (33-37); MCV 83.1 FL (81-99); MONO# 0.47 X1000 (0.11-0.59); MONO% 3.4 % (1.7-9.3); MPV 12.1 FL (7.4-10.4); NEUT# 9.12 X1000 (1.4-6.5); NEUT% 66.3 % (42.2-75.2); PLT 171 X1000 (130-400); RBC 4.72 XMIL (4.2-5.4); RDW 13.3 % (11.5-14.5); WBC 13.78 X1000 (4.8-10.8)
[2019-05-15 14:38] LABS: ESTIMATED GFR 28
[2019-05-15 14:46] LABS: AGAP 15; BUN 22 mg/dL (8-22); CHLORIDE 98 mmol/L (98-107); COSMO 289; CREATININE 1.9 mg/dL (0.5-0.9); GLUCOSE 405 mg/dL (70-104); POTASSIUM 4.4 mmol/L (3.5-5.1); SODIUM 134 mmol/L (136-145); TCO2 21 mmol/L (25-35)
[2019-05-15 15:38] LABS: UR AMPHETAMINES QUAL NONE DETECTED (NONE DETECT); UR BARBITUATES QUAL NONE DETECTED (NONE DETECT); UR BENZODIAZEPIN QUAL NONE DETECTED (NONE DETECT)
[2019-05-15 15:39] LABS: UR CANNABINOIDS QUAL PRESUMPTIVE POSITIVE (NONE DETECT); UR COCAINE QUAL PRESUMPTIVE POSITIVE (NONE DETECT); UR METHADONE QUAL NONE DETECTED (NONE DETECT); UR METHAMPHETAMINE QUAL NONE DETECTED (NONE DETECT); UR OPIATES QUAL NONE DETECTED (NONE DETECT); UR OXYCODONE QUAL NONE DETECTED (NONE DETECT); UR PCP QUAL NONE DETECTED (NONE DETECT); UR PROPOXYPHENE QUAL NONE DETECTED (NONE DETECT); UR TCA QUAL NONE DETECTED (NONE DETECT)
[2019-05-15 15:42] LABS: BILIRUBIN URINE NEGATIVE (NEGATIVE); BLOOD URINE 1+ (NEGATIVE); CLARITY CLEAR (CLEAR); COLOR YELLOW; KETONE URINE NEGATIVE (NEGATIVE); LEUKOCYTES URINE NEGATIVE (NEGATIVE); NITRITE URINE NEGATIVE (NEGATIVE); PROTEIN URINE TRACE mg/dL (NEGATIVE); UROBILINOGEN URINE NORMAL
[2019-05-15 15:53] LABS: URINE BACTERIA 1+ /HFP; URINE EPITHELIAL CELLS <10 /HPF (<10)
[2019-05-15 15:54] LABS: URINE CAST NONE SEEN /LPF; URINE CRYSTAL NONE SEEN /HPF; URINE RBC <10 /HPF (<10); URINE SOURCE CATH; URINE YEAST NONE SEEN /HPF
--- NOTE | 2019-05-15 16:12 | EKG Report ---
Test Performed on : 05/15/2019 1:04:49 PM Test Reason : ER Blood Pressure : / mmHG Vent. Rate : 077 BPM Atrial Rate : 077 BPM P-R Int : 184 ms QRS Dur : 104 ms QT Int : 422 ms P-R-T Axes : 047 -32 132 degrees QTc Int : 477 ms Normal sinus rhythm. Possible Left atrial enlargement Left axis deviation Left ventricular hypertrophy ST & T wave abnormality, consider lateral ischemia Prolonged QT Abnormal ECG When compared with ECG of 23-APR-2019 18:07, (Unconfirmed) Minimal criteria for Septal infarct are no longer present Unconfirmed Result
[2019-05-15] MEDS ORDERED: HUMULIN R SUBQ ONE (16:31)
[2019-05-15 16:48] LABS: BE -0.5 mmoll (-3.0-3.0); BLOOD TYPE ARTERIAL; HCO3-(ACT) 24.4 mmoll (20.0-26.0); METHB 1.2 % (0.0-1.5); O2(CT) 17.5 mL/dL (15.0-23.0); O2HB 92.4 % (95.0-99.0); PCO2(98.6) 34 mmHg (35-45); PO2(98.6) 79 mmHg (60-100); SAMPLE BLOOD; SAO2 98.4 % (95.0-100.0); THB 13.4 g/dL (11.5-17.4); pH(98.6) 7.44 (7.35-7.45)
[2019-05-15 16:50] LABS: ALLEN TEST YES; MODALITY ROOM AIR
[2019-05-15] MEDS ORDERED: HUMULIN R (PARKWAY) ONE (16:59)
[2019-05-15] MEDS ORDERED: ZOFRAN IV PRN (17:50)
[2019-05-15 18:20] LABS: CHOLESTEROL 175 mg/dL (0-200); HDL 48 mg/dL (45-65); TRIGLYCERIDES 181 mg/dL (35-135); VLDL 36 mg/dL
[2019-05-15 18:21] LABS: LDL 91 mg/dL
[2019-05-15 18:22] LABS: HEMOGLOBIN A1C 12.7 % (4.8-6.0)
--- NOTE | 2019-05-15 18:46 | HISTORY AND PHYSICAL ---
CHIEF COMPLAINT: Right-sided weakness. PRIMARY CARE PHYSICIAN: Chapin Avina MD. HISTORY OF PRESENT ILLNESS: This is a chronically ill-appearing, 54-year-old, -[place] female, who presented to the emergency department complaining of right arm pain and weakness that happened 2 weeks ago. The reason why she did not come to the emergency department just right after she noted that weakness, was because she was thinking that the weakness would go away, but after 2 days, she decided to come to the emergency department. She denies any nausea, vomiting, any slurred speech or blurred vision. She noted mild weakness in the right leg as well. Upon ER evaluation, the blood pressure was slightly elevated at 165. We have checked the list of medications that were given in the ER. She did not receive any aspirin because she is allergic to, but she did not receive any other antiplatelet medication. I started Plavix in this patient. The CT scan shows acute stroke, so she is going to be admitted for further evaluation and treatment. PAST MEDICAL HISTORY: 1. Uncontrolled diabetes mellitus. 2. Previous CVA in 2018. 3. SC. 4. Hypertension. 5. History of coronary artery disease. 6. COPD. PAST SURGICAL HISTORY: 1. Cholecystectomy. 2. Appendectomy. 3. Total hysterectomy. FAMILY HISTORY: Noncontributory. SOCIAL HISTORY: Patient lives by herself, but she has 1 son who lives near to her. She reports she continues to smoke half a pack of cigarettes per day. She used weed and also cocaine recently. She denies any alcohol consumption. ALLERGIES: Aspirin, hydromorphone, oral and IV contrast, Toradol, latex, penicillin, sulfa, and tramadol. HOME MEDICATIONS: To be obtained, but will be obtained later on. REVIEW OF SYSTEMS: Reviewed and all symptoms are related to H P. PHYSICAL EXAMINATION: VITALS: Temperature has not been recorded in the ER. Heart rate 90, respiratory rate 18, blood pressure 165/97, O2 saturation 96% on room air. GENERAL EXAMINATION: This is a chronically ill appearing, 54-year-old, -[place] female, lying in bed, in no acute distress. HEENT: Head is normocephalic, atraumatic. Mucous membranes moist. NECK: No JVD noted. No carotid bruits. No lymphadenopathy. No thyromegaly. CARDIOVASCULAR: S1, S2 heard. No murmurs, gallops, or rubs. Regular rate and rhythm. RESPIRATORY: Decreased breath sounds globally, but there are no crackles or wheezing noted. ABDOMEN: Soft, a little bit distended. Nontender to palpation. Bowel sounds present. No organomegaly. EXTREMITIES: No clubbing, cyanosis, or edema. Peripheral pulses present in both legs. NEUROLOGICAL: There is right upper extremity weakness of 0/5 motor strength. In the right lower extremity, there is 4/5 motor strength. The left side is preserved. Gait not assessed. Cranial nerves 2-12 grossly normal. LABORATORY DATA: White cell count 13.78, hemoglobin 12.8, hematocrit 39.2. Arterial blood gas shows pH 7.44, with pCO2 of 34 on room air. Blood sugar is 405. The UDS is positive for cocaine and cannabinoids. IMAGING: CT of the head showed extensive chronic ischemic changes with apparent new cortical and subcortical lucency in the anterior left parietal lobe. ASSESSMENT/PLAN: 1. Left parietal lobe stroke. Unfortunately, this patient has developed another episode of a stroke. Unfortunately, her blood sugars are not well controlled, and also, she continues to use cocaine and weed. She has been strongly advised to stop using drugs. Regarding treatment of the stroke, she has not received any aspirin in the ER because she is allergic to, but she did not receive any other antiplatelet agent. I will start this patient on Plavix. We will consult Physical Therapy and Occupational Therapy. 2. Uncontrolled diabetes mellitus type 2. We are going to check hemoglobin A1c. Her blood sugar on admission was 400. Instead of insulin 70/30, we will start Lantus, in this case 20 units subcutaneous daily, and sliding scale insulin as well. We are going to check also a lipid panel and will go from there. 3. Coronary artery disease. The patient was not sure if she had some chest discomfort, but of course, coronary artery disease plus active cocaine abuse. We will check troponin 3 times and will monitor this patient closely. 4. Hypertension. At this point, considering this new stroke, will allow permissive hypertension. We will treat blood pressure if that reaches 190 and above. 5. Polysubstance abuse. Patient has been strongly advised to stop using cocaine and weed. 6. Physical deconditioning. Of course, because of this new stroke, Physical Therapy on Occupational Therapy have been consulted. We will consult social work manager for anticipation for possible rehab placement that this patient may need. cc: Chad Jackson MD
[2019-05-15] MEDS: NS 1,000 ML IV SCH (21:11)
[2019-05-15] MEDS: LOVENOX SUBQ SCH (21:12)
[2019-05-15] MEDS: LANTUS INSULIN SUBQ SCH (21:12)
[2019-05-15] MEDS: PLAVIX PO SCH (21:13)
[2019-05-15] MEDS: HUMALOG (PARKWAY) SUBQ SCH (21:13)
[2019-05-15] MEDS: NORCO-10 PO PRN (21:20)
[2019-05-16 04:16] LABS: CALCIUM 9.4 mg/dL (8.8-10.2); CREATININE 1.9 mg/dL (0.5-0.9); POTASSIUM 3.7 mmol/L (3.5-5.1)
[2019-05-16 05:02] LABS: BASO% 0.3 % (0.0-0.8); EOS% 0.6 % (0.0-10.0); HEMATOCRIT 41.2 % (37.0-47.0); HEMOGLOBIN 13.4 g/dL (12.0-16.0); IMM GRAN% 0.3 % (0.0-0.5); LYMPH# 2.74 X1000 (1.2-3.4); LYMPH% 18.9 % (20.5-51.1); MCH 27.3 PG (27-31); MCHC 32.5 g/dL (33-37); MCV 84.1 FL (81-99); MONO% 6.8 % (1.7-9.3); MPV 11.8 FL (7.4-10.4); NEUT# 10.56 X1000 (1.4-6.5); NEUT% 73.1 % (42.2-75.2); PLT 170 X1000 (130-400); RDW 13.7 % (11.5-14.5); WBC 14.47 X1000 (4.8-10.8)
[2019-05-16 05:03] LABS: BASO# 0.05 X1000 (0.0-0.2); EOS# 0.09 X1000 (0.0-0.7); IMM GRAN# 0.05 X1000 (0.0-0.04); MONO# 0.98 X1000 (0.11-0.59)
[2019-05-16] MEDS: HUMALOG (PARKWAY) SUBQ SCH ×4 (07:08→21:25)
[2019-05-16] MEDS ORDERED: COZAAR PO SCH (09:00)
[2019-05-16] MEDS: NORCO-10 PO PRN ×2 (09:29→21:44)
[2019-05-16] MEDS: PLAVIX PO SCH (09:30)
[2019-05-16] MEDS: PRILOSEC PO SCH (09:30)
[2019-05-16] MEDS: LANTUS INSULIN SUBQ SCH (09:30)
--- NOTE | 2019-05-16 10:12 | Diag Imaging Result Doc PS360 ---
EXAM: MRA BRAIN W/O CONTRAST - 05/15/2019 HISTORY: acute stroke TECHNIQUE: MRA brain without contrast. Eskv-oi-fowelt MRA mammogram of the intracranial circulation with 3-D MIP images is obtained. COMPARISON: 03/21/2018 FINDINGS: There are artifacts which limit detail. There is apparent short segment tight stenosis of the intracranial distal common carotid artery on the left which has increased. There is flow signal visible in the distal most left left common carotid artery distal to the stenosis. The distal branches of the left middle cerebral artery are not well evaluated due to artifacts. There is apparent mild to moderate of the intracranial distal right common carotid artery. There is apparent short segment tight stenosis of the mid to distal left posterior cerebral artery. IMPRESSION: Short segment tight stenosis of intracranial distal left common carotid artery, which appears increased from 03/21/2018. Mild to moderate stenosis of intracranial distal right common carotid artery. Apparent short segment tight stenosis of the mid to distal left posterior cerebral artery. This report was discussed with Dr. Pickens on 05/16/2019 at 10:05 AM and was readback. Electronically signed by Randall Lawrence 05/16/2019 10:09 AM
--- NOTE | 2019-05-16 10:14 | Diag Imaging Result Doc PS360 ---
EXAM: MRI BRAIN W/O CONTRAST - 05/16/2019 HISTORY: R/O CVA TECHNIQUE: MRI brain without contrast. No contrast administered per request of the referring provider. COMPARISON: 05/15/2019 CT head without contrast FINDINGS: There are chronic microvascular ischemic changes. There is encephalomalacia from old small infarct at the left occipital lobe. The diffusion weighted images show areas of restricted diffusion at the left parietal lobe and parieto-occipital junction compatible with acute infarct. These represent multiple nearby areas of restricted diffusion, rather than the area. There is a small area of increased signal on T1-weighted images associated with these areas, which is normal with early luxury perfusion. Otherwise, there is no evidence of intracranial hemorrhage, mass effect, or midline shift. IMPRESSION: Acute infarct at left parietal lobe. This appears to represent multiple nearby areas of acute infarction, rather than a single area. This report was discussed with Dr. Pickens on 05/16/2019 at 10:05 AM and was readback. Electronically signed by Randall Lawrence 05/16/2019 10:12 AM
[2019-05-16] MEDS: NS 1,000 ML IV SCH ×2 (10:21→23:34)
--- NOTE | 2019-05-16 12:28 | PROGRESS NOTE ---
DATE: 05/16/2019 SUBJECTIVE: The patient denies having any acute complaints this morning. She is very tearful because of the inability to move her right upper extremity. OBJECTIVE: Vital Signs: Temperature 97.6 degrees, pulse 91 per minute, respiratory rate 16 per minute, blood pressure 198/106, pulse oximetry 99% on room air. General: The patient is alert and awake. She does not appear to be in any acute distress. Cardiovascular: First and second heart sounds are audible without any murmurs or gallops. Respiratory: Bilateral lung air entry is good without any rales or rhonchi. Gastrointestinal: Abdomen is soft and nondistended. Normal bowel sounds are present. Musculoskeletal: Right upper extremity is very stiff with movement. Neurologic: Right upper extremity motor weakness is present with 0/5 power. Right lower extremity minimal weakness is also present. DIAGNOSTIC DATA: CBC shows WBC count of 14.47. Rest of the CBC is nondiagnostic. Basic metabolic panel done this morning showed a creatinine level of 1.9. Rest of the BMP is nondiagnostic. In comparison her creatinine was unchanged at 1.9 yesterday. Serial cardiac enzymes have been negative, and total cholesterol was found to 175 with LDL level of 91. Urine drug screen was positive for cocaine and cannabinoids. MRI of brain done this morning showed acute infarct at left parietal lobe. MRA of the brain showed short segment tight stenosis of intracranial distal left common carotid artery, which appears to have increased when compared to 03/21/2018 study. IMPRESSION: 1. Acute cerebrovascular accident. 2. Type 2 diabetes mellitus. 3. Stage 3 chronic kidney disease. 4. Hypertension that is uncontrolled. 5. Coronary artery disease. 6. Polysubstance abuse. PLAN: The patient will be continued on clopidogrel 75 mg daily, and we are awaiting Neurology consultation from Dr. Dorantes who is going to see her later today. We will continue with lispro insulin as per sliding scale, along with Lantus insulin 20 units subcutaneously once every 24 hours. VTE prophylaxis will be provided with Lovenox 30 mg subcutaneously every 24 hours, and I am going to start her on losartan 50 mg orally once daily for her uncontrolled hypertension. She will also need physical therapy, which has already been ordered. Further recommendations will be given as per hospital course. cc: Estela Pickens MD
--- NOTE | 2019-05-16 16:05 | CONSULTATION ---
DATE OF CONSULTATION: 05/16/2019 ROOM NUMBER: She is in [facility] Room 261-A. HISTORY OF PRESENT ILLNESS: Ms. Rivas is 54 years old, and she has clinical and imaging evidence of dominant left hemisphere infarction. She reports onset of right-sided weakness several days ago. Initially, she had some trouble finding words, but that improved rapidly. She did not notice vision disturbance. She does not recall headache. There was never unconsciousness. She had presented 13 months ago with similar right hemiparesis and imaging evidence of acute left hemisphere infarction. Cocaine was on board then. Drug screen is positive for cocaine again this time. She has hypertension and diabetes mellitus. She admits she does not take her medicines always correctly. She smokes cigarettes. Workup here includes brain MRI showing old left occipital infarction and restricted diffusion consistent with multiple acute left parietal infarctions. Cervical MRA shows left common carotid stenosis. Brain MRA is unremarkable. There may be left posterior cerebral stenosis. She has been afebrile. Heart rate has ranged 80s to 100s. Systolic blood pressures have ranged 120s to 190s. DIAGNOSTIC DATA: Lab showed elevated triglycerides 181. Total cholesterol was 175 with LDL 91. Blood sugar was initially over 400 and then was 85 on last check. Her PT and PTT were unremarkable on 04/23/2019. PHYSICAL EXAMINATION: On exam, she is awake, alert, attentive, and cheerful. Speech is a little bit dysarthric, but easily understood. She had trouble naming parts of objects, but did well naming objects. She had slight difficulty with right/left distinction and digit distinction. Otherwise, language function appears intact on bedside. I did not test her cognitive function. Head and neck are unremarkable. There is no meningismus. She has full visual brown tested by confrontational finger counting. Her attention fluctuated during visual field testing, but I could not find a definite field cut, even with my knowledge of the imaging findings. Facial motility seems a little bit diminished bilaterally. Right nasolabial fold is slightly less prominent than the left. Gag is intact. Tongue is midline. She can hear. She has 4/5 strength at the right iliopsoas, 4+/5 at the right anterior tibialis, 1/5 at the right deltoid and wrist extensor, 2/5 in the right finger flexors, and 1/5 in the right finger extensors. She has good power in the left limbs. She reports diminished sensation over the right hand, inconsistent on repeated testing. Proprioception is good at the 2nd finger PIP joint bilaterally. She has good left [id number]. She cannot do rapid alternating movements or [id number] with the right hand. I did not test her gait. IMPRESSION AND PLAN: Right hemiparesis, arm much worse than face and leg, possibly mild right- sided sensory deficit, mild dysphasia, no definite right hemianopia. Findings are consistent with the changes of acute ischemic stroke noted on MRI. The old infarction is also noted. Each time, she presented with cocaine on board. She admits to being noncompliant with her management of diabetes mellitus and hypertension. She smokes cigarettes. I strongly encouraged her to stop using cocaine. We discussed the possibility that this would produce a vasospastic syndrome. I encouraged her to quit smoking cigarettes and to be aggressive with management of blood pressure and blood sugar. I think it would be reasonable to add a statin, if she can tolerate that. Regarding the carotid stenosis, I would continue hydration and consider either CT angiogram or carotid ultrasound electively to confirm the presence of carotid stenosis. If there is significant stenosis, she might be a candidate for surgical management. By her history, this stroke occurred several days ago. I do not think we have to do anything more urgently now. Thanks for asking Neurology to see Ms. Rivas. cc: MD ANGEL Valera III
[2019-05-16] MEDS: LOVENOX SUBQ SCH (16:55)
--- NOTE | 2019-05-16 18:04 | ECHO REPORT ---
ORDER DATE: 05/15/2019 MEASUREMENTS: Septal thickness 1.6, left ventricular internal diameter end-diastole 3.8. Aortic root 3.6, left atrium 2.1. SUMMARY: 1. Fair quality study. 2. Aortic valve is trileaflet and opens normally on 2-dimensional images. Peak gradient across aortic valve is less than 10 mmHg. Mitral and tricuspid valves are without evidence of structural abnormality, while pulmonic valve is not well demonstrated. There is trace tricuspid regurgitation. Aortic root is upper normal in size. 3. Normal left ventricular chamber size with moderate to severe concentric left hypertrophy as demonstrated on 2-dimensional images. Estimated left ejection fraction approximately 40% in the setting of global hypokinesis. Left atrium, right atrium, right ventricle are normal in size with grossly preserved right ventricular systolic function. 4. No pericardial effusion. 5. Appearance of inferior vena cava suggests normal central venous pressure. cc: MD Chad Garcia MD
[2019-05-16] MEDS ORDERED: NORVASC PO ONE (22:55)
[2019-05-17] MEDS: HUMALOG (PARKWAY) SUBQ SCH ×4 (06:53→20:20)
[2019-05-17 06:56] LABS: EOS# 0.33 X1000 (0.0-0.7); EOS% 3.3 % (0.0-10.0); HEMOGLOBIN 14.2 g/dL (12.0-16.0); IMM GRAN# 0.02 X1000 (0.0-0.04); IMM GRAN% 0.2 % (0.0-0.5); LYMPH# 3.53 X1000 (1.2-3.4); LYMPH% 35.4 % (20.5-51.1); MCH 27.6 PG (27-31); MCV 83.5 FL (81-99); MONO# 0.76 X1000 (0.11-0.59); MONO% 7.6 % (1.7-9.3); MPV 11.1 FL (7.4-10.4); NEUT# 5.24 X1000 (1.4-6.5); NEUT% 52.5 % (42.2-75.2); PLT 148 X1000 (130-400); RBC 5.15 XMIL (4.2-5.4); RDW 14.7 % (11.5-14.5); WBC 9.98 X1000 (4.8-10.8)
[2019-05-17 08:36] LABS: CALCIUM 8.8 mg/dL (8.8-10.2); CREATININE 1.7 mg/dL (0.5-0.9); POTASSIUM 3.7 mmol/L (3.5-5.1)
[2019-05-17] MEDS: COZAAR PO SCH (09:00)
[2019-05-17] MEDS: PLAVIX PO SCH (09:00)
[2019-05-17] MEDS: PRILOSEC PO SCH (09:00)
[2019-05-17] MEDS: LANTUS INSULIN SUBQ SCH (09:01)
[2019-05-17] MEDS: NORCO-10 PO PRN ×2 (09:22→20:32)
[2019-05-17] MEDS: 1/2 NS 1,000 ML IV SCH ×2 (10:11→20:20)
--- NOTE | 2019-05-17 11:30 | PROGRESS NOTE ---
DATE: 05/17/2019 SUBJECTIVE: Patient denies having any new complaints this morning. She continues to have weakness in her right upper extremity. OBJECTIVE: Vital Signs: Temperature 97.9 degrees, pulse 95 per minute, respiratory rate 18 per minute, blood pressure 177/94, pulse oximetry 99% on room air. General: Patient is alert and oriented x3. She does not appear to be in any acute distress. Cardiovascular System: First and second heart sounds are audible without any murmurs or gallops. Respiratory System: No respiratory distress noted. Bilateral lung air entry is moderately decreased but there are no rales or rhonchi present on auscultation. Gastrointestinal system: Abdomen is benign. Neurologic: Right upper extremity, minimal motor activities there and basically it is more less flaccid paralysis there. Right lower extremity 4 x 5 power is present. DIAGNOSTIC DATA: CBC done this morning is nondiagnostic. Chemistry done this morning showed a creatinine level of 1.7, this is a slight improvement from 1.9 yesterday. Brain MRI done yesterday showed acute infarct at left parietal lobe. IMPRESSION: 1. Acute cerebrovascular accident with right hemiparesis. 2. Uncontrolled hypertension. 3. Stage 3 chronic kidney disease. 4. Type 2 diabetes mellitus. 5. History of coronary artery disease that is stable. PLAN: We obtained Neurology consultation, who evaluated the patient and agreed with continuing to hydrate her and give her clopidogrel 75 mg daily. She will have her losartan dosage increase to 100 mg daily today since the blood pressure is still uncontrolled, although we are going to gradually lower it down to normal levels. Also we will continue to treat her diabetes with the current insulin regimen and provide her supportive care including VTE prophylaxis with enoxaparin. She will probably be needing to get transferred to rehab early next week for physical therapy. cc: Estela Pickens MD
[2019-05-17] MEDS: LOVENOX SUBQ SCH (18:35)
[2019-05-18] MEDS: 1/2 NS 1,000 ML IV SCH ×2 (06:03→15:44)
[2019-05-18] MEDS: HUMALOG (PARKWAY) SUBQ SCH ×3 (06:20→14:15)
[2019-05-18 06:45] LABS: HEMATOCRIT 38.9 % (37.0-47.0); HEMOGLOBIN 12.7 g/dL (12.0-16.0); MCH 26.8 PG (27-31); MCHC 32.6 g/dL (33-37); MCV 82.1 FL (81-99); RBC 4.74 XMIL (4.2-5.4); RDW 13.8 % (11.5-14.5); WBC 9.11 X1000 (4.8-10.8)
[2019-05-18 06:46] LABS: BASO# 0.05 X1000 (0.0-0.2); BASO% 0.5 % (0.0-0.8); EOS# 0.36 X1000 (0.0-0.7); IMM GRAN# 0.02 X1000 (0.0-0.04); IMM GRAN% 0.2 % (0.0-0.5); LYMPH# 3.53 X1000 (1.2-3.4); LYMPH% 38.7 % (20.5-51.1); MONO# 0.56 X1000 (0.11-0.59); MONO% 6.1 % (1.7-9.3); MPV 12.5 FL (7.4-10.4); NEUT# 4.59 X1000 (1.4-6.5); NEUT% 50.5 % (42.2-75.2); PLT 166 X1000 (130-400)
[2019-05-18 07:17] LABS: CALCIUM 9.5 mg/dL (8.8-10.2); CREATININE 1.6 mg/dL (0.5-0.9); POTASSIUM 3.6 mmol/L (3.5-5.1)
[2019-05-18] MEDS: NORCO-10 PO PRN ×2 (08:20→23:41)
[2019-05-18] MEDS: PRILOSEC PO SCH (08:21)
[2019-05-18] MEDS: COZAAR PO SCH (08:21)
[2019-05-18] MEDS: PLAVIX PO SCH (08:21)
[2019-05-18] MEDS: APRESOLINE IV PRN (09:29)
[2019-05-18] MEDS: LANTUS INSULIN SUBQ SCH (09:29)
--- NOTE | 2019-05-18 11:06 | EKG Report ---
Test Performed on : 05/18/2019 08:32:22 AM Test Reason : BP 220/120, Chest pain Blood Pressure : / mmHG Vent. Rate : 094 BPM Atrial Rate : 094 BPM P-R Int : 180 ms QRS Dur : 106 ms QT Int : 408 ms P-R-T Axes : 084 -15 119 degrees QTc Int : 510 ms Normal sinus rhythm. T wave abnormality, consider lateral ischemia Prolonged QT Abnormal ECG When compared with ECG of 15-MAY-2019 13:04, (Unconfirmed) No significant change was found Unconfirmed Result
--- NOTE | 2019-05-18 13:31 | PROGRESS NOTE ---
DATE: 05/18/2019 SUBJECTIVE: As per nursing staff, blood pressure has been really high. Blood pressure was reported at 205/120 manually. Yesterday, apparently family reported to us that the patient had cocaine in her purse that she was using. Today upon my examination, she admitted that she was using cocaine here in the hospital. Denies any chest pain or shortness of breath. OBJECTIVE: Vital Signs: Temperature 98.4 degrees, heart rate 91, respiratory rate 185/98, O2 saturation 100% on room air. General: This is a chronically ill-appearing, 54-year-old, female, lying in bed in no acute distress. Cardiovascular: S1, S2 heard. No murmurs, gallops, or rubs. Regular rate and rhythm. Respiratory: Clear bilaterally to auscultation. No work of breathing or using accessory muscles. Abdomen: Soft, nontender to palpation. Bowel sounds present. No organomegaly. Extremities: No clubbing, cyanosis, or edema. Peripheral pulses present in both legs. Neurological: The patient has right upper extremity that she is not able to move it, just minimal decrease on motor strength on right lower extremity 4/5, and left side completely normal. LABORATORY DATA: The creatinine is 1.6 today, basically unchanged in comparing with admission. Blood sugar is 119, but at admission it was 405. ASSESSMENT AND PLAN: 1. Acute cerebrovascular accident with right hemiparesis. The patient had an ischemic stroke affecting the left parietal lobe. At this point, will continue with the same management. Neurology has been consulted. Will follow recommendations. 2. Uncontrolled hypertension. Unfortunately, this patient continues to abuse cocaine in the hospital. She has been encouraged to stop using drugs. I am not quite sure that she is aware of how sick she is right now. 3. Chronic kidney disease stage 3, stable. Will continue to monitor BMP. 4. Diabetes mellitus type 2. Blood sugar is definitely much better controlled. Will continue with the same management. 5. History of coronary artery disease. Currently stable, but we do know that if she continues to use drugs, she can have a bad outcome. Will continue to monitor. 6. Disposition. I think upon discharge, this patient will need to go to rehab facility. nursing support worker has been notified. cc: Chad Jackson MD
[2019-05-18] MEDS: LOVENOX SUBQ SCH (17:56)
[2019-05-19] MEDS: 1/2 NS 1,000 ML IV SCH (02:46)
[2019-05-19] MEDS: HUMALOG (PARKWAY) SUBQ SCH ×5 (04:01→22:56)
[2019-05-19] MEDS: PRILOSEC PO SCH (08:15)
[2019-05-19] MEDS: APRESOLINE IV PRN (08:16)
[2019-05-19] MEDS: PLAVIX PO SCH (08:16)
[2019-05-19] MEDS: COZAAR PO SCH (08:17)
[2019-05-19] MEDS: LANTUS INSULIN SUBQ SCH (08:17)
[2019-05-19] MEDS: NORCO-10 PO PRN ×2 (09:42→22:06)
[2019-05-19 11:51] LABS: CALCIUM 8.8 mg/dL (8.8-10.2); CREATININE 1.7 mg/dL (0.5-0.9); POTASSIUM 3.5 mmol/L (3.5-5.1)
--- NOTE | 2019-05-19 12:06 | PROGRESS NOTE ---
DATE: 05/19/2019 SUBJECTIVE: Patient reports feeling fine. No new neurological symptoms noted. OBJECTIVE: Vital Signs: Temperature 98.4 degrees, heart rate 96, respiratory rate 16, blood pressure 204/107, and O2 saturation 97% on 2 L nasal cannula. General: This is a chronically ill- appearing, 54-year-old, female lying in bed in no acute distress. Cardiovascular: S1, S2 heard. No murmurs, gallops, or rubs. Regular rate and rhythm. Respiratory: Clear bilaterally to auscultation. No work of breathing or using accessory muscles. Abdomen: Soft. Nontender to palpation. Bowel sounds present. No organomegaly. Extremities: No clubbing, cyanosis, or edema. Peripheral pulses present in both legs. Neurological: Patient has a right upper extremity paresis in right lower extremity is 4/5 motor strength. Left side is completely normal. His speech is coherent. No others focal symptoms noted. LABORATORY DATA: There is CBC and BMP. Blood sugar is 143. ASSESSMENT AND PLAN: 1. Acute cerebrovascular accident with right hemiparesis. The patient had extremities stroke affecting the left parietal lobe. 2. Neurology is also following this patient. At this point, we will continue with current management. 3. Uncontrolled hypertension. As we mentioned before unfortunately this patient continues to abuse cocaine. At this time, she used it in the hospital day before yesterday. Family notified us about cocaine that she had in her purse, and also patient confirmed that she was using okay here in the hospital. That is why I prefer to treat high blood pressure with medications that are non beta blockers. She is going to be started on amlodipine 5 mg p.o. b.i.d. and also hydralazine as well. 4. Chronic kidney disease stage 3. Stable continue to monitor BMP. 5. Diabetes mellitus type 2. Not well controlled at presentation. Blood sugar has been 400. We will continue with current management now. 6. History of coronary artery disease is stable. Not complaining of any chest pain. We will continue to monitor. 7. Disposition. At this point, patient with this new stroke needs to go to rehab. We have consulted social services specialist. We have placed this admission consult for Physical Therapy and Occupational Therapy. Also, Neurology is following. At this point, we will continue to monitor this patient closely in the hospital. cc: Chad Jackson MD
[2019-05-19] MEDS: APRESOLINE PO SCH ×2 (12:18→18:06)
[2019-05-19] MEDS: NORVASC PO SCH ×2 (12:18→20:20)
[2019-05-19] MEDS: LOVENOX SUBQ SCH (18:06)
[2019-05-20] MEDS: HUMALOG (PARKWAY) SUBQ SCH ×3 (06:18→16:53)
[2019-05-20 07:12] LABS: CREATININE 1.6 mg/dL (0.5-0.9); POTASSIUM 3.6 mmol/L (3.5-5.1)
[2019-05-20] MEDS: PRILOSEC PO SCH (07:16)
[2019-05-20] MEDS: NORVASC PO SCH ×2 (09:04→20:06)
[2019-05-20] MEDS: PLAVIX PO SCH (09:04)
[2019-05-20] MEDS: COZAAR PO SCH (09:04)
[2019-05-20] MEDS: LANTUS INSULIN SUBQ SCH (09:05)
[2019-05-20] MEDS: NORCO-10 PO PRN (09:05)
[2019-05-20] MEDS: APRESOLINE PO SCH ×3 (09:05→16:53)
[2019-05-20] MEDS: LOVENOX SUBQ SCH (16:53)
--- NOTE | 2019-05-20 17:06 | PROGRESS NOTE ---
DATE: 05/20/2019 ROOM NUMBER: [id number]. Ms. Rivas has no new complaints. She does not have headache now. She reports good appetite. Chart shows recent systolic blood pressure 160s to 200s. She is able to voluntarily raise her right arm against gravity a little bit better today than when I saw her several days ago. I do not find a new neurologic deficit on brief bedside exam. She continues awake, alert, attentive, cheerful. IMPRESSION: Recent cerebral infarction associated with cocaine in addition to typical risk factors. I encouraged her to not use cocaine and to avoid any illicit drugs. I encouraged her to be aggressive with management of her medical problems. I hope she will continue to improve over time. I do not have any other suggestion from a Neurology standpoint right now. Thanks for asking us to see Ms. Rivas. cc: MD ANGEL Valera III
--- NOTE | 2019-05-20 23:02 | PROGRESS NOTE ---
DATE: 05/20/2019 SUBJECTIVE: Patient states she is feeling okay. Denies any current changes. Denies any worsening of her weakness, but still is weak and unable to walk without assistance. OBJECTIVE: Vital signs: Temperature 98.4, pulse 104, respiratory 18, BP 165/97. General: Patient is awake, she is in no current respiratory distress. HEENT: Normocephalic. Neck: Supple. Cardiovascular: Regular rate. Chest: Clear, nonlabored. Abdomen: Soft, nondistended. Neuro: Unchanged. ASSESSMENT: 1. Acute cerebrovascular accident with right hemiparesis, slight improvement. 2. Hypertension, still elevated but improved. 3. Chronic renal failure at 1.7, stage 3. 4. Diabetes type 2. Very poor home control with an A1c of 12.7. 5. Known coronary artery disease. 6. Chronic intentional medical compliance given her hypertension, renal failure, markedly elevated blood sugars and her continued ongoing cocaine use. PLAN: We will continue patient in the hospital. We will, hopefully, transition to rehab at some point. We will continue physical therapy. Monitor for further withdrawal. Further orders as needed. cc: Herb Mantilla MD
[2019-05-21] MEDS: NORCO-10 PO PRN ×3 (00:13→21:40)
[2019-05-21] MEDS: HUMALOG (PARKWAY) SUBQ SCH ×5 (00:15→21:30)
[2019-05-21] MEDS: PRILOSEC PO SCH (06:27)
[2019-05-21 07:05] LABS: CALCIUM 8.7 mg/dL (8.8-10.2); CREATININE 1.6 mg/dL (0.5-0.9)
[2019-05-21] MEDS: NORVASC PO SCH ×2 (08:46→21:30)
[2019-05-21] MEDS: COZAAR PO SCH (08:46)
[2019-05-21] MEDS: PLAVIX PO SCH (08:46)
[2019-05-21] MEDS: APRESOLINE PO SCH ×3 (08:46→18:08)
[2019-05-21] MEDS: LANTUS INSULIN SUBQ SCH (08:47)
--- NOTE | 2019-05-21 11:39 | PROVIDER DOCUMENTATION ---
This chart was entered by Jaquelin Bragg Scribe, acting as scribe for Dom Jean MD. HPI-General Adult - General Chief Complaint: Weakness Stated Complaint: STROKE SX Time Seen by Provider: 05/15/19 12:10 Source: patient Allergies/Adverse Reactions: Patient Allergies Allergy/AdvReac Type Severity Reaction Status Date / Time aspirin Allergy ABDOMINAL Verified 11/19/18 09:50 PAIN diphenhydramine HCl * Allergy HIVES Verified 11/19/18 09:50 [From Benadryl] hydromorphone HCl * Allergy ITCHING Verified 11/19/18 09:50 [From Dilaudid] ibuprofen [From Motrin] Allergy ABDOMINAL Verified 11/19/18 09:50 PAIN Iodinated Contrast Media Allergy HIVES Verified 11/19/18 09:50 ketorolac tromethamine * Allergy DIARRHEA Verified 11/19/18 09:50 [From Toradol] latex Allergy RASH Verified 11/19/18 09:50 Penicillins Allergy ITCHING Verified 11/19/18 09:50 Sulfa (Sulfonamide Allergy HIVES Verified 11/19/18 09:50 Antibiotics) tramadol HCl * [From Ultram] Allergy ITCHING Verified 11/19/18 09:50 Home Medications: Home Medication List Medication Instructions Recorded Confirmed Last Taken Type Hydrocodone/Acetaminophen 1 each PO BID PRN PRN #30 tablet 05/11/17 05/15/19 Unknown Rx [Hydrocodone-Acetamin 10-325 mg] Amlodipine [Norvasc] 10 mg PO DAILY #30 tab 10/02/18 05/15/19 05/15/19 08:00 Rx Clonidine HCl 0.1 mg PO BID 11/19/18 05/15/19 05/15/19 08:00 History Hum Insulin NPH/Reg Insulin Hm 15 unit SQ BID 11/19/18 05/15/19 05/15/19 20:00 History [Novolin 70-30 100 Unit/ml Vial] - History of Present Illness -Gen Adult Nature of Presenting Problems: Patient is a 54 year old female who presents with right arm pain. States pain has been present for 2 days. History of CVA. Patient also states weakness in right leg but she is unsure of how long it has been present. States having to drag her right leg and usually does not, perhaps 2 days. Painful right shoulder . Old stroke with minimal use right upper extremity, Location of Pain/Injury: reports: upper extremity (right arm) Pain Radiation: reports: no radiation Quality of Pain: reports: aching Severity: reports: mild Onset/Duration: reports: 2 days ago Timing: reports: still present Context/Activities at Onset: reports: light activity Modifying Factors: improves with: nothing Associated Symptoms: reports: denies symptoms Similar Symptoms Previously?: Yes Recently seen or treated by another doctor?: Yes Review of Systems - Adult - REVIEW OF SYSTEMS - ADULT Constitutional: reports: no symptoms reported. denies: chills, fever, fatique Eyes: reports: no symptoms reported Ears, Nose, Mouth & Throat: reports: no symptoms reported Cardiovascular: reports: no symptoms reported Respiratory: reports: no symptoms reported Gastrointestinal: reports: no symptoms reported Genitourinary: reports: no symptoms reported Musculoskeletal: reports: see HPI, other (right arm pain). denies: back pain, neck pain Integumentary: reports: no symptoms reported Neurological: reports: see HPI, other (weakness to right leg). denies: dizziness/vertigo, headache/migraines, numbness Psychiatric: reports: no symptoms reported Endocrine: reports: no symptoms reported Hematologic/Lymphatic: reports: no symptoms reported Allergic/Immunologic: reports: no symptoms reported All Other Systems: Reviewed and Negative Past History - Adult - PAST MEDICAL HISTORY-ADULT Review of Records: reports: Nursing Assessment Review, Medications Reviewed, Social history reviewed & non-contributory. Major Childhood Illnesses: reports: denies history Cardiovascular: reports: cardiac disease, HTN, DC Respiratory: reports: denies history Gastrointestinal: reports: denies history Obstetrical/Gynecological: reports: other (lmp 2 weeks ago) Genitourinary: reports: denies history Musculoskeletal: reports: chronic pain (back) Neurological: reports: CVA Psychiatric: reports: anxiety, depression Endocrine/Immune: reports: Diabetes Other Conditions: reports: denies history - PRIOR SURGERIES/PROCEDURES Surgical/Procedure History: reports: appendectomy, cholecystectomy, hysterectomy (partial), other (left ovary) - PRIOR HOSPITALIZATIONS Prior Hospitalizations: reports: for other non-related - IMMUNIZATION STATUS Childhood Immunizations: See Nurse Assessment Flu Vaccine: See Nurse Assessment - FAMILY HISTORY Family History: reviewed, not pertinent - SOCIAL HISTORY Smoking: cigarettes, less than 1 pack/day Provider spent 3-5 mins advising pt. on dangers of tobacco.: Discussed manners to quit use, and f/u contacts for add'l counseling. Substance Use: denies Living Situation: alone Physical Exam-General - PHYSICAL EXAM-ADULT Initial Vital Signs Reviewed: Yes - CONSTITUTIONAL General Appearance: alert, no apparent distress. negative: lethargic - HEAD, EARS, NOSE, MOUTH & THROAT HENMT: normocephalic/atraumatic, moist mucous membranes, other (poor dentition). negative: angioedema - RESPIRATORY Respiratory: chest non-tender, lungs clear, normal breath sounds. negative: crackles, rhonchi - CARDIOVASCULAR Cardiovascular: normal peripheral pulses, regular rate, rhythm. negative: tachycardia - GASTROINTESTINAL (ABDOMEN) Abdominal Exam: normal bowel sounds, non tender, soft. negative: guarding, rebound - MUSCULOSKELETAL Back Exam: other Extremity: tenderness (right shoulder.pain and stiffnes to attempted ROM right should but no t right elbow/wrist.), other ( limited ROM to right shoulder due to pain.). negative: erythema, swelling - SKIN Integumentary: normal color, normal turgor, warm/dry. negative: diaphoresis, ecchymosis, jaundice, rash - NEUROLOGIC Neurologic: motor weakness (right arm and right leg). negative: aphasia, facial droop - PSYCHIATRIC Psych/Mental Status: normal mood/affect, oriented x 3. negative: anxious Progress - PLAN OF CARE/RESULTS Progress/Plan/Lab Results: Vital Signs - 8 hr 05/15/19 11:55 Pulse Rate 90 Respiratory Rate 18 Blood Pressure 165/97 O2 Sat by Pulse Oximetry 96 Orders Category Date Time Status CT HEAD W/O CONTRAST [CT] Stat Exams 05/15/19 12:06 Ordered Result Diagrams: 05/18/19 06:00 05/21/19 05:29 - EKG 1 Time of EKG reading by physician:: 13:04 EKG Read and Signed by:: Dom Jean EKG Interpretation (*Must complete 3 of following elements*): Abnormal (ST & T wave abnormality, consider lateral ischemia) Rate: 77 Rhythm: normal sinus rhythm [place]: left QRS: LVH RI Interval: normal Comments: possible left atrial enlargement; prolonged QT - XRAY 1 XRAY Study: Chest Impression: See EMR Report ( EXAM: CHEST-PORTABLE 05/15/2019 HISTORY: CVA TECHNIQUE: AP portable upright at 1305 COMMENT: There are two nodules in the left lower chest one is partially obscured by the heart border and the other in the costophrenic angle region. This has not changed significantly since 04/23/2019. Otherwise there is no evidence of acute cardiac or pulmonary disease. There is a sclerotic focus in the upper shaft of the left humerus which has not changed since 04/11/2018. IMPRESSION: Stable chest. Electronically signed by Musa Whiting 05/15/2019 12:56 PM 05/15/19 1256 Interpreting Physician: Musa Whiting MD Dictated Date/Time: 05/15/19 1255 cc: Dom Jean MD; Chapin Avina MD) - CT/MRI 1 CT Study: Head Impression: See EMR Report ( EXAM: CT HEAD W/O CONTRAST 05/15/2019 HISTORY: weakness on right side TECHNIQUE: This exam was performed using automated exposure control, adjustment of mA or kV according to patient size, and/or use of iterative reconstruction technique. COMMENT: There is no evidence of mass effect or bleed. There is considerable encephalomalacia in the left parietal and posterior frontal cortex and subcortical white matter. There is also a fairly large lacune measuring over 14 mm in the left temporal lobe. There is a smaller lacune present in the thalamus on the right. There is also some cortical and subcortical encephalomalacia in the right posterior parietal convexity. There is periventricular white matter lucency particularly around the frontal horns and worse on the left than right. These findings were also present at the time the previous examination of 04/23/2019. There is a focus of lucency in the cortex and subcortical white matter seen best on image 39 in the anterior parietal convexity on the left. This was not demonstrated on the previous study. IMPRESSION: Extensive chronic ischemic change as described. Apparent new cortical and subcortical lucency in the anterior left parietal lobe. Given the findings, further evaluation with MRI may be desirable. Electronically signed by Musa Whiting 05/15/2019 12:43 PM 05/15/19 1243 Interpreting Physician: Musa Whiting MD Dictated Date/Time: 05/15/19 1238 cc: Dom Jean MD; Chapin Avina MD) - CONSULTS/PCP/HOSPITALIST Notification #1 *Consult/PCP/Hospitalist*: dr angulo Time Discussed: 17:29 Consult Disposition: Will see in ED Departure - Departure Date of Disposition Decision: 05/15/19 Time of Disposition Decision: 17:28 DIAGNOSIS: Ischemic stroke, Hyperglycemia, Bursitis of left shoulder Disposition: ADMITTED INPATIENT 09 Certified Medical Emergency: Emergent Condition: Fair - Critical Care Note This patient required my direct & personal management of CC.: Yes Total Time (mins): 45 Critical Care Statement: This patient required my direct personal management to treat or rule out processes, the absence of which, could potentiallly result in sudden, clinically significant life or limb threatening deterioration. Attestation - Physician/ KATE Attestation The physician spent face to face time with patient:: Yes Advanced Practice Provider documentation review:: Supervising physician onsite and consulted in the evaluation and care of this patient. The physician did have a face to face encounter with the patient. This chart was documented by the indicated scribe, (Jaquelin Bragg, Jesus) and accurately reflects the services I performed and decisions made by me, Dom Jean MD, as attested by the provider's signature.
[2019-05-21] MEDS: LOVENOX SUBQ SCH (18:08)
--- NOTE | 2019-05-21 22:22 | PROGRESS NOTE ---
DATE: 05/21/2019 SUBJECTIVE: Patient has no complaints. Denies any acute changes. PHYSICAL EXAMINATION: Vital Signs: Reviewed. Temperature 98 degrees, pulse 97, respiratory rate 18, BP 141/70. General: Patient is awake. She is pleasant. She is in no distress. HEENT: Normocephalic. Neck: Supple. Cardiovascular: Regular rate. Chest: Clear. Abdomen: Soft, nondistended. Extremities: Moves left extremities well. She has right hemiparesis. Neuro: Unchanged from previous exams. ASSESSMENT: 1. Acute cerebrovascular accident with right hemiparesis. 2. Hypertension, improved. 3. Chronic kidney disease stage 3. 4. Diabetes with very poor home control, an A1c of 12.7. 5. Known coronary artery disease. 6. History of extracurricular activities with cocaine use. PLAN: Again today, we discussed with patient the importance of controlling her blood sugar and blood pressures, and certainly the importance of not using cocaine. We will continue to follow. She certainly is going to need rehab upon discharge. Further orders as needed cc: Herb Mantilla MD MTDD
[2019-05-22] MEDS: PRILOSEC PO SCH (06:06)
[2019-05-22] MEDS: HUMALOG (PARKWAY) SUBQ SCH ×2 (06:07→11:10)
[2019-05-22 07:44] VITALS: BP 156/95
[2019-05-22] MEDS: PLAVIX PO SCH (08:14)
[2019-05-22] MEDS: COZAAR PO SCH (08:14)
[2019-05-22] MEDS: LANTUS INSULIN SUBQ SCH (08:14)
[2019-05-22] MEDS: APRESOLINE PO SCH (08:14)
[2019-05-22] MEDS: NORVASC PO SCH (08:14)
--- NOTE | 2019-05-22 08:59 | DISCHARGE SUMMARY ---
ADMISSION DATE: 05/15/2019 DISCHARGE DATE: 05/22/2019 CONSULTATIONS: Dr. Corrina Dorantes with Neurology. PRIMARY PROCEDURES: 1. Head CT: Extensive chronic ischemic changes, apparent new cortical and subcortical lucency in the anterior left parietal lobe. 2. Brain MRA: Short segment tight stenosis of intracranial distal left common carotid artery, which appears increased from 03/21/2018. Mild to moderate stenosis of intracranial distal right common carotid artery. Apparent short-segment tight stenosis of the mid to distal left posterior cerebral artery. 3. Echocardiogram: Shows an EF of 40% in the setting of global hypokinesis. 4. Brain MRI: Acute infarct in the left parietal lobe appears to represent multiple nearby areas of acute infarction, rather than a single area. DISCHARGE DIAGNOSES: 1. Left parietal lobe stroke associated with cocaine use and abuse. The patient has been encouraged about cocaine abstinence, and to avoid illicit drugs altogether. She will continue on Plavix, aspirin and a statin as well if the patient tolerates. She has been working with physical therapy, and will need to continue rehabilitation. 2. Hypertension, improved. 3. Chronic kidney disease stage III. 4. Diabetes with poorly controlled hemoglobin A1c of 12.7. Continue diabetic diet and fingerstick blood sugar. 5. Known coronary artery disease. 6. History of cocaine use. 7. Carotid stenosis. The patient will need further workup after discharge from rehabilitation. HOSPITAL COURSE: Briefly, Ms. Rivas is a 54-year-old female, who presented to the ED complaining of right arm pain and weakness that happened 2 weeks ago. She also reported mild weakness in her right leg as well. On evaluation in the ED, the CT scan showed an acute stroke. She could not be placed on aspirin as she has an allergy. She was initiated on Plavix. She underwent a brain MRI, MRA, echocardiogram, and Doppler, studies that did show a left parietal lobe acute stroke. She was followed by Neurology. They recommend to continue antiplatelet medication with Plavix and add a statin that the patient could tolerate, as well as educated on keeping tight control on blood glucoses, hypertension, illicit drug use, and to follow up as an outpatient for evaluation of her carotids. Ms. Rivas has been working with PT and OT and will be discharged to rehab today. VITAL SIGNS: Temperature is 98.3 degrees, heart rate 90, respirations 20, blood pressure 156/95, O2 is 99% on room air. DISCHARGE DIET: Diabetic. DISCHARGE MEDICATIONS: 1. Apresoline 20 mg p.o. t.i.d. 2. Cozaar 100 mg p.o. daily. 3. [place] 10/325 one each p.o. b.i.d. p.r.n. 4. Lantus 20 units subcutaneous daily. 5. Norvasc 5 mg p.o. b.i.d. 6. Plavix 75 mg p.o. daily. 7. Prilosec 40 mg p.o. daily. FOLLOWUP: Ms. Rivas is being discharged to rehab today to continue with physical therapy. She is to follow up with her primary care provider, Dr. Chapin Avina. She is to take all medications as prescribed. She can return to the ED or call 911 for any worsening of symptoms. Dictated by LEEANNA Briseno for Herb Mantilla MD cc: MD Chapin Anderson MD
[2019-05-22] MEDS: NORCO-10 PO PRN (10:24)
[2019-05-22] MEDS ORDERED: DULCOLAX PR ONE (10:49)
[2019-05-22] MEDS ORDERED: MIRALAX PO ONE (10:49)
--- NOTE | 2019-05-23 19:42 | DISCHARGE SUMMARY ---
ADMISSION DATE: 05/15/2019 DISCHARGE DATE: 05/22/2019 Addendum Report Patient seen and examined by myself. Full note dictated and discussed with nurse practitioner. On discharge, patient is awake, alert. She is in no distress. Blood pressures have improved as have her blood sugars. Discussed with patient the importance of controlling blood sugar and blood pressure. We will transfer to rehab. cc: Herb Mantilla MD
== END 2019-05-22 11:17 | DRG 65 ==
LOC: P.ED 11:52 → SUATTDRO 19:43 → P.MEDSURG 19:43
PROVIDERS: ATTEND Family Medicine

== ENCOUNTER 2019-11-11 14:54 | Inpatient (IN) ==
[2019-11-11] MEDS ORDERED: NS 1,000 ML IV PRN (15:08)
--- NOTE | 2019-11-11 15:20 | Diag Imaging Result Doc PS360 ---
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 There is no indication of recent infarct, although acute infarcts may not be immediately visible. There is no evidence of intracranial hemorrhage, mass effect, midline shift, or hydrocephalus. There is no evidence of skull fracture. IMPRESSION: Chronic ischemic changes at left frontotemporal and parietal lobes similar to prior. No visible acute intracranial abnormality. No hemorrhage or mass effect. This exam was performed using automated exposure control, adjustment of mA or kV according to patient size, and/or use of iterative reconstruction technique. Electronically signed by Randall Lawrence 11/11/2019 3:18 PM
--- NOTE | 2019-11-11 15:26 | Diag Imaging Result Doc PS360 ---
EXAM: CHEST-PORTABLE - 11/11/2019 HISTORY: CVA TECHNIQUE: Portable chest COMPARISON: October 2019 FINDINGS: Heart size is normal. There is tortuosity thoracic aorta similar to prior. Inspiration is mildly shallow. There are stable left lower lung nodular densities. Lungs otherwise appear clear. There is no pleural effusion or pneumothorax identified. IMPRESSION: Mildly shallow inspiration. Stable left lower lung nodular densities. No other evidence of acute disease. Electronically signed by Nurigenematt 11/11/2019 3:23 PM
[2019-11-11 16:52] LABS: BASO# 0.07 X1000 (0.0-0.2); BASO% 0.5 % (0.0-0.8); EOS# 0.24 X1000 (0.0-0.7); EOS% 1.8 % (0.0-10.0); IMM GRAN# 0.03 X1000 (0.0-0.04); IMM GRAN% 0.2 % (0.0-0.5); LYMPH# 4.58 X1000 (1.2-3.4); LYMPH% 34.6 % (20.5-51.1); MCH 27.2 PG (27-31); MCHC 33.3 g/dL (33-37); MCV 81.6 FL (81-99); MONO# 0.75 X1000 (0.11-0.59); MONO% 5.7 % (1.7-9.3); NEUT# 7.55 X1000 (1.4-6.5); NEUT% 57.2 % (42.2-75.2); PLT 190 X1000 (130-400); RBC 4.41 XMIL (4.2-5.4); RDW 13.7 % (11.5-14.5); WBC 13.22 X1000 (4.8-10.8)
[2019-11-11 16:59] LABS: URINE SOURCE CATH
[2019-11-11 17:01] LABS: INR 0.85
[2019-11-11 17:02] LABS: PTT 32.6 Seconds (22.3-41.8)
[2019-11-11 17:03] LABS: BILIRUBIN URINE NEGATIVE (NEGATIVE); BLOOD URINE NEGATIVE (NEGATIVE); COLOR YELLOW; GLUCOSE URINE 500 mg/dL (NEGATIVE); KETONE URINE NEGATIVE (NEGATIVE); LEUKOCYTES URINE NEGATIVE (NEGATIVE); NITRITE URINE NEGATIVE (NEGATIVE); PH URINE 5.5; PROTEIN URINE 50 mg/dL (NEGATIVE); TURBIDITY URINE CLEAR (CLEAR); UR EPITHELIAL CELLS <10 /HPF (<10); URINE BACTERIA NEGATIVE /HPF; URINE RBC <10 /HPF (<10); URINE WBC <10 /HPF (<10); UROBILINOGEN URINE 2 mg/dL (NORMAL)
[2019-11-11 17:06] LABS: ALBUMIN 3.7 g/dL (3.5-5.0); CALCIUM 9.1 mg/dL (8.8-10.2); CREATININE 1.4 mg/dL (0.5-0.9); TOTAL BILIRUBIN 0.2 mg/dL (0.20-1.00); TOTAL PROTEIN 7.9 g/dL (6.3-8.3)
--- NOTE | 2019-11-11 17:09 | PROVIDER DOCUMENTATION ---
This chart was entered by Jaquelin Bragg Scribe, acting as scribe for Joselin Poon MD. HPI-Neurological Disorder - General Chief Complaint: Stroke-Like Symptoms Stated Complaint: STROKE SX Time Seen by Provider: 11/11/19 15:08 Source: patient, family Allergies/Adverse Reactions: Patient Allergies Allergy/AdvReac Type Severity Reaction Status Date / Time aspirin Allergy ABDOMINAL Verified 11/11/19 16:05 PAIN diphenhydramine HCl * Allergy HIVES Verified 11/11/19 16:05 [From Benadryl] hydromorphone HCl * Allergy ITCHING Verified 11/11/19 16:05 [From Dilaudid] ibuprofen [From Motrin] Allergy ABDOMINAL Verified 11/11/19 16:05 PAIN Iodinated Contrast Media Allergy HIVES Verified 11/11/19 16:05 ketorolac tromethamine * Allergy DIARRHEA Verified 11/11/19 16:05 [From Toradol] latex Allergy RASH Verified 11/11/19 16:05 Penicillins Allergy ITCHING Verified 11/11/19 16:05 Sulfa (Sulfonamide Allergy HIVES Verified 11/11/19 16:05 Antibiotics) tramadol HCl * [From Ultram] Allergy ITCHING Verified 11/11/19 16:05 Home Medications: Home Medication List Medication Instructions Recorded Confirmed Last Taken Type Hydralazine [Apresoline] 20 mg PO TID tab 05/22/19 11/11/19 Unknown Rx Hydrocodone/Acetaminophen 1 ea PO BID PRN PRN #20 tab 05/22/19 11/11/19 Unknown Rx [Hydrocodone-Acetamin 10-325 mg] Insulin Glargine [Lantus Insulin] 20 unit SUBQ DAILY unit 05/22/19 11/11/19 Unknown Rx Omeprazole [Prilosec] 40 mg PO DAILY@0700 cap 05/22/19 11/11/19 Unknown Rx Clonidine HCl 0.1 mg PO BID 11/11/19 11/11/19 11/11/19 History Insulin Humulin 70/30 [Humulin 100 ml SQ BID 11/11/19 11/11/19 11/11/19 History 70/30] - History of Present Illness-Neuro Nature of Presenting Problem: Patient is a 54 year old female who presents with family for right side facial droop. Family states noticing the right side facial droop 45 minutes prior to arrival. 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 Patient states having right upper extremity weakness from prior stroke. 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) Timing: reports: still present Context: reports: facial droop (right) New weakness or altered sensation location:: reports: right facial Associated Symptoms: reports: denies symptoms Similar Symptoms Previously?: No Recently seen or treated by another doctor?: No Review of Systems - Adult - REVIEW OF SYSTEMS - ADULT Constitutional: reports: no symptoms reported Eyes: reports: no symptoms reported Ears, Nose, Mouth & Throat: reports: no symptoms reported Cardiovascular: reports: no symptoms reported Respiratory: reports: no symptoms reported Gastrointestinal: reports: no symptoms reported Genitourinary: reports: no symptoms reported Musculoskeletal: reports: no symptoms reported Integumentary: reports: no symptoms reported Neurological: reports: see HPI, other (right side facial droop) Psychiatric: reports: no symptoms reported Endocrine: reports: no symptoms reported Hematologic/Lymphatic: reports: no symptoms reported Allergic/Immunologic: reports: no symptoms reported All Other Systems: Reviewed and Negative Past History - Adult - PAST MEDICAL HISTORY-ADULT Review of Records: reports: Old Records Reviewed, Nursing Assessment Review, Medications Reviewed, Social history reviewed & non-contributory. Major Childhood Illnesses: reports: denies history Cardiovascular: reports: cardiac disease, HTN, [place] Respiratory: reports: denies history Gastrointestinal: reports: denies history Obstetrical/Gynecological: reports: other (lmp 2 weeks ago) Genitourinary: reports: denies history Musculoskeletal: reports: chronic pain (back) Neurological: reports: CVA, stroke deficits (RUE), TIA Psychiatric: reports: anxiety, depression Endocrine/Immune: reports: Diabetes Other Conditions: reports: denies history - PRIOR SURGERIES/PROCEDURES Surgical/Procedure History: reports: appendectomy, cholecystectomy, hysterectomy (partial), other (left ovary) - PRIOR HOSPITALIZATIONS Prior Hospitalizations: reports: for other non-related - IMMUNIZATION STATUS Childhood Immunizations: See Nurse Assessment Flu Vaccine: See Nurse Assessment - FAMILY HISTORY Family History: reviewed, not pertinent - SOCIAL HISTORY Smoking: cigarettes, less than 1 pack/day Provider spent 3-5 mins advising pt. on dangers of tobacco.: Discussed manners to quit use, and f/u contacts for add'l counseling. 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 patient states weakness is from prior CVA.) Integumentary: normal color, normal turgor, warm/dry Psych/Mental Status: normal mood/affect, normal thought content, normal thought process, oriented x 3 - Glascow Coma Scale Best Eye Response: (4) open spontaneously Best Verbal Response: (5) oriented Best Motor Response: (6) obeys commands Total Glascow Score: 15 Progress - PLAN OF CARE/RESULTS Progress/Plan/Lab Results: Vital Signs - 8 hr 11/11/19 14:58 11/11/19 16:47 11/11/19 16:57 Temperature 98 F Pulse Rate 86 73 78 Respiratory Rate 18 16 17 Blood Pressure 101/68 112/77 148/90 O2 Sat by Pulse Oximetry 97 97 96 Laboratory Results - last 24 hr 11/11/19 11/11/19 11/11/19 16:11 16:11 16:54 WBC 13.22 H RBC 4.41 Hgb 12.0 Hct 36.0 L MCV 81.6 MCH 27.2 MCHC 33.3 RDW Std Deviation 13.7 Plt Count 190 MPV 11.0 H Immature Gran % (Auto) 0.2 Neut % (Auto) 57.2 Lymph % (Auto) 34.6 [place] % (Auto) 5.7 Eos % (Auto) 1.8 Baso % (Auto) 0.5 Immature Gran # (Auto) 0.03 Neut # (Auto) 7.55 H Lymph # (Auto) 4.58 H [place] # (Auto) 0.75 H Eos # (Auto) 0.24 Baso # (Auto) 0.07 PT 12.0 INR 0.85 PTT (Actin FS) 32.6 Urine Source CATH Urine Color YELLOW Urine Turbidity CLEAR Urine pH 5.5 Ur Specific [place] 1.020 Urine Protein 50 A Ur Glucose (Stick) 500 A Ur Ketones (Stick) NEGATIVE Urine Blood NEGATIVE Urine Nitrite NEGATIVE Urine Bilirubin NEGATIVE Urobilinogen Dipstick 2 A Urine Leukocytes NEGATIVE Urine WBC (Auto) <10 Urine RBC (Auto) <10 U Epithel Cells (Auto) <10 Urine Bacteria (Auto) NEGATIVE Orders Category Date Time Status Cardiac Monitoring DIRECTED Care 11/11/19 15:09 Active Finger Stick Blood Sugar (ED) DIRECTED Care 11/11/19 15:09 Active Misc. NRSG Communication Order DIRECTED Care 11/11/19 15:09 Active Oxygen Therapy- ED Nursing DIRECTED Care 11/11/19 15:09 Active Saline Loc NOW Care 11/11/19 15:09 Active CHEST-PORTABLE [RAD] Stat Exams 11/11/19 15:[address] HEAD W/O CONTRAST [CT] Stat Exams 11/11/19 15:01 Completed CBC WITH ELECTRONIC DIFF [HEME] Stat Lab 11/11/19 16:11 Completed COMPREHENSIVE METABOLIC PANEL [CHEM] Stat Lab 11/11/19 16:11 Received PROTIME WITH INR [COAG] Stat Lab 11/11/19 16:11 Completed PTT [COAG] Stat Lab 11/11/19 16:11 Completed TROPONIN T HIGH SENSITIVITY Stat Lab 11/11/19 16:11 Received URINALYSIS W/POSS RFLX CULT [URINALYSIS] Stat Lab 11/11/19 16:54 Completed URINE DRUG SCREEN PL Stat Lab 11/11/19 16:54 Received 0.9% Sodium Chloride Inj [Ns] 1,000 ml Med 11/11/19 15:08 Active IV 1,000 mls/hr EKG [EKG] Stat Ther 11/11/19 15:09 Ordered Result Diagrams: 11/11/19 16:11 - EKG 1 Time of EKG reading by physician:: 16:38 EKG Read and Signed by:: Joselin Poon EKG Interpretation (*Must complete 3 of following elements*): Abnormal (prolonged QT) Rate: 72 Rhythm: NSR [place]: normal QRS: LVH (moderate voltage criteria, may be normal variant) CO Interval: normal Prior EKG Comparison: unchanged from prior Comments: T wave abnormality, consider lateral ischemia; - XRAY 1 XRAY Study: Chest Impression: See EMR Report ( EXAM: CHEST-PORTABLE - 11/11/2019 HISTORY: CVA TECHNIQUE: Portable chest COMPARISON: October 2019 FINDINGS: Heart size is normal. There is tortuosity thoracic aorta similar to prior. Inspiration is mildly shallow. There are stable left lower lung nodular densities. Lungs otherwise appear clear. There is no pleural effusion or pneumothorax identified. IMPRESSION: Mildly shallow inspiration. Stable left lower lung nodular densities. No other evidence of acute disease. 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 There is no indication of recent infarct, although acute infarcts may not be immediately visible. There is no evidence of intracranial hemorrhage, mass effect, midline shift, or hydrocephalus. There is no evidence of skull fracture. IMPRESSION: Chronic ischemic changes at left frontotemporal and parietal lobes similar to prior. No visible acute intracranial abnormality. No hemorrhage or mass effect. This exam was performed using automated exposure control, adjustment of mA or kV according to patient size, and/or use of iterative reconstruction technique. Electronically signed by Randall Lawrence 11/11/2019 3:18 PM 11/11/19 1518 Interpreting Physician: Randall Lawrence MD Dictated Date/Time: 11/11/19 1514 cc: Joselin Poon MD; Chapin Avina MD) - CONSULTS/PCP/HOSPITALIST Notification #1 *Consult/PCP/Hospitalist*: Dr. Mantilla Time Discussed: 17:04 Reason/Comments: Dr. Poon consulted with Dr. Mantilla about patient Consult Disposition: Will see in ED, Admit Departure - Departure Date of Disposition Decision: 11/11/19 Time of Disposition Decision: 17:04 DIAGNOSIS: TIA (transient ischemic attack) Disposition: ADMITTED INPATIENT 09 Certified Medical Emergency: Emergent Condition: Stable Referrals and Follow-Ups: Chapin Avina MD [Primary Care Provider] - - Critical Care Note This patient required my direct & personal management of CC.: No Attestation - Physician/ KATE Attestation Patient care was provided by Advanced Practice Provider:: No The physician spent face to face time with patient:: Yes Advanced Practice Provider documentation review:: Supervising physician onsite and consulted in the evaluation and care of this patient. The physician did have a face to face encounter with the patient. - NIH Stroke Scale NIH Type: Initial Evaluation Level of Consciousness: 0-Alert LOC Questions (ask month and age): 0-Answers Both Correctly LOC Commands (ask to open & close eyes;make a fist, let go): 0-Obeys Both Correctly Best Gaze (horizontal eye movement): 0-Normal Visual (use finger movement, counting or visual threat): 0-No Visual Loss Facial Palsy (show teeth or raise eyebrows & close eyes tght: 1-Minor Paralysis Motor Function-left arm: 0-Normal Motor Function-right arm: 2-Some Effort Against [place] Motor Function-left le-Normal Motor Function-right le-Normal Limb Ataxia(titmmn-yieu-fbjldm, or heel to scott): 0-No Ataxia Sensory(pin prick to face,arms,trunk,legs-compare side/side): 0-No Ataxia Best Language(name item/read sentence.Ex-Down to Earth): 0-No Aphasia Dysarthria(Pt read words or say words Ex.Mama,Tip-Top,Thanks: 0-Normal Articulation Extinction and Inattention: 0-Normal NIH Total Score: 2 Stroke tPA Guidelines - Inclusion Criteria for IV tPA 18 years old or older: Yes Ischemic stroke with measurable deficit: No Onset <3 hours ago *OR* 3-4.5 hours ago: Yes - Exclusion Criteria for IV tPA Evidence of intracranial hemorrhage on CT: No Presentation suggest SAH: No CT reveals defined area of hypodensity: No Evidence of AVM, neoplasm, aneurysm: No Seizure at stroke onset: No Active internal bleeding or acute trauma: No Platelet Count Less Than 100,000: No Heparin Within Last 48 HRS (PTT >Lab normal limits): No INR > 1.7 (warfarin use): No Use IIB/IIIA inhibitors within 24 hours: No Serious Head Trauma Within Last 3 Months: No Arterial Puncture Within Last 7 Days: No Lumbar Puncture Within Last 7 Days: No Repeated systolic Blood Pressure >185 or Diastolic >110: No - Additional Exclusion Criteria for IV tPA Currently on Coumadin: No Patient older than 80: No Prior stroke and diabetes: Yes Baseline NIHSS score > 25: No - Relative Contraindications to IV tPA CT reveals extensive area of infarct (>1/3 MCA territory): No Minor or rapidly improving stroke symptoms: Yes Major Surgery or Serious Trauma In Previous 14 Days: No AMI within 3 months: No Gastrointestinal or Urinary Tract hemorrhage in Past 21 Days: No Post - AMI pericarditis: No - Consultation tPA risks/benefits explained to:: family Candidate for:: NOT A CANDIDATE Reason not a candidate:: Minor or resolving symptoms. This chart was documented by the indicated scribe, (Jaquelin Bragg Scribe) and accurately reflects the services I performed and decisions made by Ayah cooper Carisa L., MD, as attested by the provider's signature.
[2019-11-11 17:20] LABS: UR AMPHETAMINES QUAL NONE DETECTED (NONE DETECT); UR BARBITUATES QUAL NONE DETECTED (NONE DETECT); UR BENZODIAZEPIN QUAL NONE DETECTED (NONE DETECT); UR CANNABINOIDS QUAL PRESUMPTIVE POSITIVE (NONE DETECT); UR COCAINE QUAL NONE DETECTED (NONE DETECT); UR METHADONE QUAL NONE DETECTED (NONE DETECT); UR METHAMPHETAMINE QUAL NONE DETECTED (NONE DETECT); UR OPIATES QUAL PRESUMPTIVE POSITIVE (NONE DETECT); UR OXYCODONE QUAL NONE DETECTED (NONE DETECT); UR PCP QUAL NONE DETECTED (NONE DETECT); UR PROPOXYPHENE QUAL NONE DETECTED (NONE DETECT); UR TCA QUAL NONE DETECTED (NONE DETECT)
[2019-11-11] MEDS ORDERED: APRESOLINE PO PRN (18:23)
--- NOTE | 2019-11-11 20:30 | HISTORY AND PHYSICAL ---
CHIEF COMPLAINT: Stroke-like symptoms. HISTORY OF PRESENT ILLNESS: The patient is a 54-year-old female who presented to the hospital with her family noting that she had some right-sided facial droop prior to her arrival. States that she has had 3 prior strokes with right upper extremity weakness from her previous stroke. The family notes that this time she was unable to walk or stand. She has been confused, disoriented. She was sitting outside eating when symptoms occurred and she tripped over in the chair. ALLERGIES: Benadryl causing hives. Aspirin, Dilaudid causing itching, Motrin causing abdominal pain, iodinated contrast dye causing hives, Toradol, penicillin causing a rash, sulfa and tramadol causing itching. MEDICATIONS: Hydralazine 20 t.i.d., [place], insulin 20 daily, clonidine 0.1 b.i.d., and Humulin 70/30. REVIEW OF SYSTEMS: Unobtainable from Ms. Rivas as currently she is unable to really answer questions although she does nod her head no when asked if she is in pain. Her father is in the room and he answers all of her questions. Denies any nausea, fevers, chills, cough, congestion. Denies any knowledge of GI or issues prior to this event. Does note that she has right upper extremity weakness, but typically she is able to walk around. States that currently she is too weak to be able to stand. FAMILY HISTORY: Positive for hypertension. SOCIAL HISTORY: The patient lives at home. The father does note that she has a longstanding history of abusing pretty much anything. States that she takes most of her pain medications when she 1st gets them. States she will frequently drink codeine cough syrup. She does smoke. PAST MEDICAL HISTORY: Significant for hypertension, diabetes, history of [place], history of stroke with right upper extremity weakness. She has had previous TIAs, has chronic anxiety, chronic depression, chronic back pain. SURGICAL HISTORY: Significant for appendectomy, cholecystectomy, hysterectomy and left ovarian surgery. PHYSICAL EXAMINATION: VITAL SIGNS: Reviewed. Temp 98 degrees, pulse 86, respiratory rate 18, BP 101/68 initially. Currently 148/90. Sat 96% on room air. GENERAL: Patient is awake, pleasant. She is in no current distress. HEENT: Normocephalic. NECK: Supple. CARDIOVASCULAR: Regular rate. CHEST: Clear, nonlabored. ABDOMEN: Soft, nondistended. EXTREMITIES: She has right upper extremity weakness although unclear if this is any worse than usual. She does appear to have some right lower extremity weakness. Left upper and lower extremity have no weakness. NEUROLOGIC: She is awake, alert. She does answer some questions but does not answer when asked, where is she, what month or what year is it. LABS: WBCs 13. UA clear. Urine drug screen positive for opiates. Chest x-ray clear with stable left lower lobe nodules. CT head demonstrates chronic ischemic changes, but no acute bleed. ASSESSMENT: 1. Altered mental status. Unsure if this is due to overuse of medications or due to a new stroke. 2. Confusion. 3. Right upper extremity weakness from previous stroke. Again, unclear if it is any worse than her baseline. The father is unable to give any information regarding that. 4. Diabetes. 5. Hypertension. 6. Chronic polysubstance use and abuse. PLAN: We are going to admit patient to the hospital for observation. Place her on oxygen, check an echo, carotid, will hold all narcotics and we will follow. cc: Herb Mantilla MD
--- NOTE | 2019-11-11 21:45 | EKG Report ---
Test Performed on : 11/11/2019 4:36:05 PM Test Reason : CVA Blood Pressure : / mmHG Vent. Rate : 072 BPM Atrial Rate : 072 BPM P-R Int : 186 ms QRS Dur : 106 ms QT Int : 462 ms P-R-T Axes : 052 -26 111 degrees QTc Int : 505 ms Normal sinus rhythm. Moderate voltage criteria for LVH, may be normal variant T wave abnormality, consider lateral ischemia Prolonged QT Abnormal ECG When compared with ECG of 20-OCT-2019 18:05, (Unconfirmed) No significant change was found Unconfirmed Result
[2019-11-12 06:49] LABS: HEMATOCRIT 38.5 % (37.0-47.0); HEMOGLOBIN 12.4 g/dL (12.0-16.0); MCH 26.2 PG (27-31); MCHC 32.2 g/dL (33-37); MCV 81.4 FL (81-99); MPV 11.4 FL (7.4-10.4); RBC 4.73 XMIL (4.2-5.4); RDW 13.6 % (11.5-14.5); WBC 11.52 X1000 (4.8-10.8)
[2019-11-12 07:21] LABS: HEMOGLOBIN A1C 11.1 % (4.8-6.0)
[2019-11-12 07:23] LABS: ALBUMIN 3.7 g/dL (3.5-5.0); CALCIUM 9.6 mg/dL (8.8-10.2); CREATININE 1.2 mg/dL (0.5-0.9); MAGNESIUM 1.6 mg/dL (1.5-2.7); TOTAL BILIRUBIN 0.4 mg/dL (0.20-1.00); TOTAL PROTEIN 8.2 g/dL (6.3-8.3)
[2019-11-12 07:27] LABS: CHOLESTEROL 172 mg/dL (0-200); HDL 39 mg/dL (45-65); LDL 94 mg/dL; TRIGLYCERIDES 193 mg/dL (35-135); VLDL 39 mg/dL
[2019-11-12] MEDS: NORVASC PO SCH (10:02)
[2019-11-12] MEDS: LANTUS INSULIN SUBQ SCH (10:02)
--- NOTE | 2019-11-12 10:24 | Vascular Study Report ---
EXAM: Carotid Ultrasound HISTORY: cva TECHNIQUE: Grayscale, duplex, and color Doppler evaluation was performed of the carotid arteries bilaterally. Standard protocol. COMPARISON: None. FINDINGS: There is no significant atherosclerotic plaque. There are no velocity elevations to suggest hemodynamically significant carotid artery stenosis. ICA/CCA ratios are within normal limits. Bilateral vertebral arterial flow is antegrade. IMPRESSION: No evidence for hemodynamically significant internal carotid artery stenosis. Estimated stenosis is less than 50% bilaterally. Electronically signed by Hellen Mascorro 11/12/2019 10:22 AM
[2019-11-12] MEDS ORDERED: TYLENOL PO ONE (11:38)
--- NOTE | 2019-11-12 11:45 | Diag Imaging Result Doc PS360 ---
EXAM: MRI BRAIN W/O CONTRAST HISTORY: cva? TECHNIQUE: Multisequence, multiplanar images of the brain were obtained without contrast as per standard protocol. COMPARISON MRI 05/16/2019. FINDINGS: Images are degraded by patient motion. There are no extra-axial collections. Diffusion images show at least five areas of restricted diffusion mostly within watershed regions of the left parietal lobe measuring 5-10 millimeters in size. There is no evidence for hemorrhage. There is no hydrocephalus. No midline shift or mass effect. There is extensive deep white matter hyperintensity more confluent on the left nonspecific in appearance but likely related to microvascular disease. No abnormal signal within the cerebellum or brainstem. No midline shift or mass effect is appreciated. There is diffuse cerebral atrophy with more focal left encephalomalacia from prior infarction. IMPRESSION: 1.Multiple small acute watershed infarcts left parietal lobe each measuring 5 to 10 mm in size. 2.No midline shift or mass effect. 3.Atrophy and microvascular disease. Electronically signed by Hellen Mascorro 11/12/2019 11:42 AM
--- NOTE | 2019-11-12 15:04 | ECHO REPORT ---
ORDER DATE: 11/12/2019 INTERPRETING PHYSICIAN: Max Plaza MD. INDICATION: Possible stroke. M-MODE MEASUREMENTS: Left ventricle end diastole: 2.2 cm. Left ventricle end systole: 2.3 cm. Posterior wall: 1.6 cm. Interventricular septum: 1.6 cm. Left atrium: 3.4 cm. Aortic diameter: 3.9 cm. SUMMARY OF 2-DIMENSIONAL IMAGIN. The left ventricle shows [id number] hypertrophy. The left ventricular systolic function appears to be at the lower limits of normal, ejection fraction estimated at 55%. 2. The aortic valve looks normal. Color flow mapping unremarkable. 3. There is no pericardial effusion. 4. The mitral valve looks normal. Color flow mapping unremarkable. 5. Pulse wave Doppler of mitral inflow shows fusion of the E and A wave. 6. Tissue Doppler of septal and lateral mitral annulus averages 4 cm. 7. There is impaired left ventricular relaxation. 8. The pulmonic valve looks normal. Color flow mapping unremarkable. 9. The tricuspid valve shows mild degree of regurgitation. 10.Pulmonary pressure is estimated at 28 mmHg. 11.The right-sided chambers are not dilated. 12.There is suggestion of physiologic degree of pericardial fluid. Clinical correlation is recommended. cc: MD Herb Alexander MD
--- NOTE | 2019-11-12 22:01 | PROGRESS NOTE ---
DATE: 11/12/2019 SUBJECTIVE: Patient is still confused, does not answer questions appropriately. She is sitting up on the side of the bed. PHYSICAL EXAM: Temp 97.7, pulse 97, respiratory rate 18, BP 152/84.General: Patient is awake, pleasant, in no distress. HEENT: Normocephalic. Neck: Supple. Cardiovascular: Regular rate. Chest: Clear. Abdomen: Soft, nondistended. Extremities: Moves left upper and lower extremity without difficulty. Right lower extremity seems to have better strength. 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 Neurologic: Patient is awake, alert. She does not answer questions appropriately. ASSESSMENT: 1. Acute cerebrovascular accident. She has had several small infarcts according to her MRI. 2. Altered mental status. 3. Confusion. 4. Right upper extremity weakness secondary to acute and chronic CVA. 5. History of polysubstance abuse. 6. Hyponatremia. PLAN: We will continue patient in the hospital. Start baby aspirin. She is not a candidate currently for further anticoagulation given her noncompliance. ASSESSMENT: 1. Acute CVA. 2. Confusion. 3. Right upper extremity weakness, chronic with likely acutely worsening. 4. Diabetes. 5. Hypertension. PLAN: We will continue patient in the hospital. We will get physical therapy involved. Ask Securities Consultant to assist in discharge planning person rehab. cc: Herb Mantilla MD
[2019-11-13] MEDS: CELEXA PO SCH (08:45)
[2019-11-13] MEDS: NORVASC PO SCH (08:45)
[2019-11-13] MEDS: LANTUS INSULIN SUBQ SCH (08:45)
[2019-11-13] MEDS: COZAAR PO SCH (08:46)
[2019-11-13] MEDS: ASPIRIN PO SCH (08:46)
[2019-11-13] MEDS ORDERED: LIPITOR PO SCH (09:00)
[2019-11-13] MEDS ORDERED: ZOFRAN IV PRN (11:39)
[2019-11-13] MEDS: REGLAN IV SCH ×2 (14:45→22:30)
--- NOTE | 2019-11-13 22:07 | PROGRESS NOTE ---
DATE: 11/13/2019 SUBJECTIVE: The patient with no new complaints. She is disoriented. Does not answer questions. PHYSICAL EXAMINATION: Vital signs: Temperature 98.4 degrees, pulse 104, respiratory 18, BP 107/89. General: Patient is pleasant. She is sitting up on the side of the bed. She is awake, alert, but confused, disoriented. Does not answer questions nor follow commands. ASSESSMENT: 1. Acute cerebrovascular accident. 2. Hypertension. 3. Hyponatremia. Sodium 133. 4. Diabetes. 5. Chronic polysubstance use and abuse. PLAN: Overall patient's blood pressures have started creeping back up. We are going to add back her losartan to the Norvasc that has already been added. She is still hypoxic. We are going to continue oxygen, get physical therapy involved. cc: Herb Mantilla MD
[2019-11-14] MEDS: REGLAN IV SCH ×3 (05:21→21:28)
[2019-11-14] MEDS: LANTUS INSULIN SUBQ SCH (08:12)
[2019-11-14] MEDS: ASPIRIN PO SCH (08:13)
[2019-11-14] MEDS: COZAAR PO SCH (08:13)
[2019-11-14] MEDS: CELEXA PO SCH (08:13)
[2019-11-14] MEDS: NORVASC PO SCH (08:13)
[2019-11-14 08:51] LABS: HEMATOCRIT 40.4 % (37.0-47.0); HEMOGLOBIN 13.2 g/dL (12.0-16.0); MCH 26.8 PG (27-31); MCHC 32.7 g/dL (33-37); MCV 81.9 FL (81-99); MPV 11.4 FL (7.4-10.4); RBC 4.93 XMIL (4.2-5.4); RDW 13.9 % (11.5-14.5); WBC 15.05 X1000 (4.8-10.8)
[2019-11-14 09:01] LABS: ALBUMIN 4.2 g/dL (3.5-5.0); CALCIUM 9.8 mg/dL (8.8-10.2); CREATININE 1.5 mg/dL (0.5-0.9); MAGNESIUM 1.7 mg/dL (1.5-2.7); POTASSIUM 3.6 mmol/L (3.5-5.1); TOTAL BILIRUBIN 0.4 mg/dL (0.20-1.00); TOTAL PROTEIN 8.9 g/dL (6.3-8.3)
[2019-11-14] MEDS: CATAPRES PO SCH ×3 (09:16→20:58)
[2019-11-14] MEDS: PLAVIX PO SCH (09:16)
[2019-11-14] MEDS: NS 1,000 ML IV SCH ×2 (11:08→23:04)
[2019-11-14] MEDS: LIPITOR PO SCH (20:58)
--- NOTE | 2019-11-14 22:33 | PROGRESS NOTE ---
DATE: 11/14/2019 SUBJECTIVE: The patient has no complaints. PHYSICAL EXAMINATION: Vital Signs: Reviewed. Temperature 98, pulse 104, respiratory rate 18, BP 149/75. General: The patient is awake, sitting on the bed. HEENT: Normocephalic. Neck: Supple. Cardiovascular: Regular rate. Chest: Clear, nonlabored. Abdomen: Soft, nondistended. Extremities: She moves the left upper and lower without issues. Right upper is still 3/5 strength. ASSESSMENT: 1. Acute delirium secondary to recent stroke, still problematic. 2. Recent stroke. 3. Right upper extremity weakness, likely secondary to her previous stroke. 4. Hypertension. We are going to add her clonidine to losartan and Norvasc, and will follow. 5. Hyponatremia. PLAN: Patient will continue in the hospital until she can transition to rehab. cc: Herb Mantilla MD
[2019-11-15] MEDS: REGLAN IV SCH ×3 (05:18→21:32)
[2019-11-15] MEDS: PLAVIX PO SCH (08:49)
[2019-11-15] MEDS: CATAPRES PO SCH ×3 (08:49→20:14)
[2019-11-15] MEDS: ASPIRIN PO SCH (08:49)
[2019-11-15] MEDS: COZAAR PO SCH (08:49)
[2019-11-15] MEDS: NORVASC PO SCH (08:49)
[2019-11-15] MEDS: NORCO-10 PO PRN ×3 (08:49→21:33)
[2019-11-15] MEDS: CELEXA PO SCH (08:49)
[2019-11-15] MEDS: LANTUS INSULIN SUBQ SCH (11:14)
[2019-11-15] MEDS: NS 1,000 ML IV SCH (12:23)
[2019-11-15] MEDS: LIPITOR PO SCH (20:14)
[2019-11-16] MEDS: NS 1,000 ML IV SCH (01:20)
--- NOTE | 2019-11-16 01:49 | PROGRESS NOTE ---
DATE: 11/15/2019 SUBJECTIVE: Patient with no new complaints. Still confused, disoriented. PHYSICAL EXAMINATION: Vital Signs: Reviewed. Temperature 97.9 degrees, pulse 87, respiratory 18, BP 159/66. General: Patient is pleasant. No distress. HEENT: Normocephalic. Neck: Supple. Cardiovascular: Regular rate. Chest: Clear. Abdomen: Soft. Extremities: Moves all extremities. Neurologic: No focal changes. Patient is still awake, alert, but confused, disoriented. ASSESSMENT: 1. Acute cerebrovascular accident with confusion. 2. Right upper extremity weakness from previous stroke, appears to be at her baseline. 3. Hypertension. We have added losartan, Norvasc, and we will add clonidine. 4. Hypertension. PLAN: We are going to continue patient in the hospital. She will need to be restarted on cholesterol medicine at some point although currently she is having difficulty swallowing. We do not want to add any additional pills to that until she improves. cc: Herb Mantilla MD
[2019-11-16] MEDS: REGLAN IV SCH (05:16)
[2019-11-16] MEDS: NORCO-10 PO PRN ×3 (06:01→18:48)
[2019-11-16] MEDS: LANTUS INSULIN SUBQ SCH (08:54)
[2019-11-16] MEDS: CELEXA PO SCH (08:55)
[2019-11-16] MEDS: NORVASC PO SCH (08:55)
[2019-11-16] MEDS: CATAPRES PO SCH ×3 (08:55→20:11)
[2019-11-16] MEDS: PLAVIX PO SCH (08:55)
[2019-11-16] MEDS: COZAAR PO SCH (08:55)
[2019-11-16] MEDS: ASPIRIN PO SCH (08:55)
--- NOTE | 2019-11-16 10:47 | PROGRESS NOTE ---
DATE: 11/16/2019 SUBJECTIVE: Patient with no complaints. Did have low blood sugar at 83 to 96 last night. PHYSICAL EXAMINATION: Vital Signs: Temp 97, pulse 73, respiratory rate 16, BP 133/85. General: The patient is pleasant. She is in no distress. HEENT: Normocephalic. Neck: Supple. Cardiovascular: Regular rate. Chest: Clear. Abdomen: Soft. Extremities: Moves all extremities. Neurologic: No real changes. The patient is awake, alert, but confused, disoriented. Still has some upper extremity right-sided weakness. PLAN: We are going to stop her telemetry. She has had no heart issues. We are going to recheck her labs in the morning. Continue to encourage oral intake. Concerned that her creatinine actually bumped up a little bit, although we have restarted her Cozaar after creatinine increased. We are going to stop her Reglan and IV fluids, and will follow. cc: Hreb Mantilla MD
[2019-11-16] MEDS: LIPITOR PO SCH (20:11)
[2019-11-17] MEDS: NORCO-10 PO PRN ×2 (06:31→14:39)
[2019-11-17 06:47] LABS: ALBUMIN 3.3 g/dL (3.5-5.0); CALCIUM 8.7 mg/dL (8.8-10.2); CREATININE 1.1 mg/dL (0.5-0.9); MAGNESIUM 1.4 mg/dL (1.5-2.7); TOTAL BILIRUBIN 0.4 mg/dL (0.20-1.00); TOTAL PROTEIN 6.9 g/dL (6.3-8.3)
[2019-11-17 07:21] LABS: HEMOGLOBIN 11.1 g/dL (12.0-16.0); MCH 26.9 PG (27-31); MCHC 31.7 g/dL (33-37); MPV 11.5 FL (7.4-10.4); RBC 4.12 XMIL (4.2-5.4); RDW 14.1 % (11.5-14.5); WBC 11.5 X1000 (4.8-10.8)
[2019-11-17] MEDS: LANTUS INSULIN SUBQ SCH (08:37)
[2019-11-17] MEDS: PLAVIX PO SCH (08:38)
[2019-11-17] MEDS: CATAPRES PO SCH ×2 (08:38→14:39)
[2019-11-17] MEDS: NORVASC PO SCH (08:39)
[2019-11-17] MEDS: ASPIRIN PO SCH (08:39)
[2019-11-17] MEDS: CELEXA PO SCH (08:39)
[2019-11-17] MEDS: COZAAR PO SCH (08:39)
[2019-11-17 14:10] VITALS: BP 136/72
[2019-11-17] MEDS ORDERED: COLACE PO ONE (16:26)
[2019-11-17] MEDS ORDERED: MIRALAX PO ONE (16:27)
--- NOTE | 2019-11-17 16:44 | DISCHARGE SUMMARY ---
ADMISSION DATE: 11/11/2019 DISCHARGE DATE: 11/17/2019 DIAGNOSES: 1. Acute cerebrovascular accident with confusion. 2. Right upper extremity weakness from previous stroke at baseline. 3. Hypertension. Blood pressures are now controlled on her current medical regimen. 4. Diabetes mellitus. 5. Hyponatremia resolved. 6. History of polysubstance abuse. 7. The patient is not a candidate currently for anticoagulation given her noncompliance per documentation. DIAGNOSTICS: CT of the head without contrast revealed chronic ischemic changes at the left frontotemporal and parietal lobes. This is similar to prior of 10/20/2019 with no visible acute intracranial abnormality. No hemorrhage or mass effect. Echocardiogram with ejection fraction of 55% with ventricular systolic function at the lower limits of normal. Impaired left ventricle relaxation. Bilateral carotid Doppler revealed stenosis of less than 50% bilateral. Brain MRI multiple small acute watershed infarcts left parietal lobe, each measuring 5 to 10 mm. No midline shift or mass effect. Atrophy and microvascular disease. HOSPITAL COURSE: Ms. Rivas presented to the emergency room with stroke-like symptoms per the family, being unable to walk to walk or stand with confusion and disoriented orientation. She was found to have multiple small acute watershed infarcts, left parietal, each measuring 5 to 10 mm in size. She was evaluated by physical therapy. She had difficulty walking. She required assistance to stand due to right upper extremity involvement of prior strokes. She was able to walk with help and with the use of a front wheel walker. It is recommended that she go to rehab for further physical therapy. DISCHARGE VITAL SIGNS: Blood pressure is 136/72 with a heart rate of 69, respirations 18, temperature 98.1 degrees with room air saturations 96%. DISCHARGE PHYSICAL EXAMINATION: Cardiovascular: Regular rate and rhythm. S1, S2 appreciated. No murmur. Pulmonary: Breath sounds are clear. No increased work of breathing noted. Chest rises and falls symmetric with respiration. Chest wall is nontender to palpation. No increased work of breathing noted. Gastrointestinal: Abdomen is soft, nontender, nondistended. Normal bowel sounds in all 4 quadrants. Neurologic: She is awake, alert, disoriented and confused. She has right upper extremity weakness. Skin: Warm and dry. DISCHARGE MEDICATIONS: Prilosec 40 mg p.o. daily, losartan 100 mg p.o. daily, Lantus 10 units subcutaneous daily. [place] 10/325 q.6 hours p.r.n. pain. Hydralazine 25 mg p.o. t.i.d., Plavix 75 mg p.o. daily, clonidine 0.1 p.o. t.i.d. at 9, 3 and 9, citalopram 40 mg p.o. daily, Lipitor 40 mg p.o. at bedtime, aspirin 325 p.o. daily, Norvasc 10 mg p.o. daily. DISPOSITION: She is being discharged in stable condition to rehab at [facility]. Family members are present. FOLLOW-UP INSTRUCTIONS: She is to follow up Dr. Avina within a week or 2 after being discharged from rehab. Dictated by LEEANNA Mathews for Chad Jackson MD cc: LEEANNA Mathews MD
== END 2019-11-17 17:00 | DRG 65 ==
LOC: P.ED 14:54 → P.MEDSURG 19:48 → SUATTDRO 19:48
PROVIDERS: ATTEND Internal Medicine

== ENCOUNTER 2019-12-14 02:07 | Inpatient (IN) ==
[2019-12-14] MEDS ORDERED: NS 1,000 ML IV ONE (02:18)
[2019-12-14] MEDS ORDERED: MAXIPIME 1 GM in NS 50 ML IV ONE ×2 (02:19→03:09)
[2019-12-14] MEDS ORDERED: VANCOMYCIN IV PER PHARMACY MISC SCH (02:30)
--- NOTE | 2019-12-14 02:36 | PROVIDER DOCUMENTATION ---
HPI-Fever - General Stated Complaint: fever Time Seen by Provider: 12/14/19 02:10 Source: patient, EMS, [facility] Allergies/Adverse Reactions: Patient Allergies Allergy/AdvReac Type Severity Reaction Status Date / Time aspirin Allergy ABDOMINAL Verified 12/14/19 03:08 PAIN diphenhydramine HCl * Allergy HIVES Verified 12/14/19 03:08 [From Benadryl] hydromorphone HCl * Allergy ITCHING Verified 12/14/19 03:08 [From Dilaudid] ibuprofen [From Motrin] Allergy ABDOMINAL Verified 12/14/19 03:08 PAIN Iodinated Contrast Media Allergy HIVES Verified 12/14/19 03:08 ketorolac tromethamine * Allergy DIARRHEA Verified 12/14/19 03:08 [From Toradol] latex Allergy RASH Verified 12/14/19 03:08 Penicillins Allergy ITCHING Verified 12/14/19 03:08 Sulfa (Sulfonamide Allergy HIVES Verified 12/14/19 03:08 Antibiotics) tramadol HCl * [From Ultram] Allergy ITCHING Verified 12/14/19 03:08 Home Medications: Home Medication List Medication Instructions Recorded Confirmed Last Taken Type Omeprazole [Prilosec] 40 mg PO DAILY@0700 cap 05/22/19 12/14/19 Unknown Rx Amlodipine Besylate 10 mg PO DAILY 11/11/19 12/14/19 Unknown History Clonidine HCl 0.1 mg PO TID 11/11/19 12/14/19 11/11/19 History Clopidogrel [Plavix] 75 mg PO DAILY 11/11/19 12/14/19 Unknown History Hydralazine [Apresoline] 25 mg PO TID 11/11/19 12/14/19 Unknown History Losartan Potassium 100 mg PO DAILY 11/11/19 12/14/19 Unknown History ATORVAstatin [Lipitor] 40 mg PO HS #90 tab 11/17/19 12/14/19 Unknown Rx Aspirin 325 mg PO DAILY #90 tab 11/17/19 12/14/19 Unknown Rx Citalopram Hydrobromide 40 mg PO DAILY #90 11/17/19 12/14/19 Unknown Rx [Citalopram HBr] Hydrocodone/Acetaminophen 1 tab PO Q6H PRN PRN #30 tab 11/17/19 12/14/19 Unknown Rx [Hydrocodone-Acetamin 10-325 mg] Insulin Aspart [Novolog Flexpen] See Protocol SUBQ DIRECTED 12/14/19 12/14/19 Unknown History Insulin Glargine [Lantus Insulin] 10 unit SUBQ DAILY 12/14/19 12/14/19 Unknown History Insulin Glargine [Lantus Insulin] 16 unit SUBQ DAILY 12/14/19 12/14/19 Unknown History - History of Present Illness-Fever Nature of Presenting Problem: Patient is in rehab at [facility] s/p CVA treated here earlier this month, brought by EMS for fever, cough and abdominal pain. Patient given norco po at [place] for pain/fever. On arrival, patient c/o slight cough, no abdominal pain, some chills and fever. There are two employees at [facility] who have tested positive for COVID. Fever Severity/Quality: reports: greater than 100.5 F Onset/Duration: reports: 1-3 hours ago Timing: reports: improving, constant Severity: reports: mild Context: reports: [facility] Recent Illness?: reports: other (CVA) Fever Therapy DROP CLIPPER: Initiated Tylenol Cognitive Baseline: alert but confused Modifying Factors: improves with: analgesics Associated Symptoms: reports: cough, fever/chills, other (abd pain) Similar Symptoms Previously?: No Recently seen or treated by another doctor?: Yes (at rehab center) - Glascow Coma Score Best Eye Response ([place]): (4) open spontaneously Best Verbal Response ([place]): (4) confused conversation Best Motor Response ([place]): (6) obeys commands [place] Total: 14 Review of Systems - Adult - REVIEW OF SYSTEMS - ADULT Constitutional: reports: no symptoms reported Eyes: reports: no symptoms reported Ears, Nose, Mouth & Throat: reports: no symptoms reported Cardiovascular: reports: no symptoms reported Respiratory: reports: no symptoms reported Gastrointestinal: reports: no symptoms reported Genitourinary: reports: no symptoms reported Musculoskeletal: reports: no symptoms reported Integumentary: reports: no symptoms reported Neurological: reports: no symptoms reported Psychiatric: reports: no symptoms reported Endocrine: reports: no symptoms reported Hematologic/Lymphatic: reports: no symptoms reported Allergic/Immunologic: reports: no symptoms reported All Other Systems: Reviewed and Negative Past History - Adult - PAST MEDICAL HISTORY-ADULT Review of Records: reports: Old Records Reviewed (Stroke earlier this month, d/c 11/18/19), Nursing Assessment Review, Medications Reviewed, Social history reviewed & non-contributory. Major Childhood Illnesses: reports: denies history Cardiovascular: reports: cardiac disease, HTN, [place] Respiratory: reports: denies history Gastrointestinal: reports: denies history Obstetrical/Gynecological: reports: other (lmp 2 weeks ago) Genitourinary: reports: denies history Musculoskeletal: reports: chronic pain (back) Neurological: reports: CVA Psychiatric: reports: anxiety, depression Endocrine/Immune: reports: Diabetes Other Conditions: reports: denies history - PRIOR SURGERIES/PROCEDURES Surgical/Procedure History: reports: appendectomy, cholecystectomy, hysterectomy (partial), other (left ovary) - PRIOR HOSPITALIZATIONS Prior Hospitalizations: reports: for other non-related - IMMUNIZATION STATUS Childhood Immunizations: See Nurse Assessment Flu Vaccine: See Nurse Assessment - FAMILY HISTORY Family History: reviewed, not pertinent - SOCIAL HISTORY Smoking: cigarettes, greater than 1 pack/day Provider spent 3-5 mins advising pt. on dangers of tobacco.: Discussed manners to quit use, and f/u contacts for add'l counseling. Substance Use: none/never Alcohol Use Frequency: occasionally Living Situation: care facility Physical Exam-General - PHYSICAL EXAM-ADULT Initial Vital Signs Reviewed: Yes (VSSAF) - CONSTITUTIONAL General Appearance: appears well, alert, no apparent distress - EYES Eyes: PERRL/EOMI, pink conjunctivae - HEAD, EARS, NOSE, MOUTH & THROAT HENMT: normocephalic/atraumatic, moist mucous membranes, normal ENT inspection - NECK Neck: full range of motion, supple, normal inspection. negative: meningismus - RESPIRATORY Respiratory: chest non-tender, no pleuratic chest pain, no respiratory distress, no accessory muscle use, decreased breath sounds, wheezing (rare end expiratory) . negative: lungs clear, normal breath sounds - CARDIOVASCULAR Cardiovascular: normal peripheral pulses, regular rate, rhythm, no edema, no gallop, no JVD, no murmur - GASTROINTESTINAL (ABDOMEN) Abdominal Exam: normal bowel sounds, non tender, soft, no organomegaly, no pulsatile mass. 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 nml as tested, motor weakness (RUE from prior CVA) - PSYCHIATRIC Psych/Mental Status: normal mood/affect, normal thought content, normal thought process, other (disoriented to time and place) Progress - PLAN OF CARE/RESULTS Progress/Plan/Lab Results: Vital Signs - 8 hr 12/14/19 02:37 Temperature 98.3 F Pulse Rate 89 Respiratory Rate 17 Blood Pressure 154/89 O2 Sat by Pulse Oximetry 100 12/14/19 02:52 Group A Strep Rapid Antigen - Final Throat 12/14/19 02:52 Influenza Screen - Final Nasopharyngeal Laboratory Results - last 24 hr 12/14/19 12/14/19 12/14/19 02:16 02:18 02:18 WBC RBC Hgb Hct MCV MCH MCHC RDW Std Deviation Plt Count MPV Immature Gran % (Auto) Neut % (Auto) Lymph % (Auto) [place] % (Auto) Eos % (Auto) Baso % (Auto) Immature Gran # (Auto) Neut # (Auto) Lymph # (Auto) [place] # (Auto) Eos # (Auto) Baso # (Auto) PT INR Specimen Type ARTERIAL Sample Site R RADIAL pH 7.43 pCO2 39 pO2 83 HCO3 26.1 H Base Excess 1.5 Oxyhemoglobin 95.6 ABG O2 Sat (Calculated) 15.0 ABG O2 Saturation 97.2 ABG Carboxyhemoglobin 0.90 ABG Methemoglobin 0.7 Daniel Test YES A-a O2 Difference 18.0 Total Hemoglobin 11.1 L Lactate 0.70 Blood Gas Modality ROOM AIR FiO2 % 21.0 Sodium 136 Potassium 4.8 Chloride 100 Carbon Dioxide 22 L Anion Gap 14 BUN 25 H Creatinine 1.5 H Estimated GFR/1.73 m2 44 BUN/Creatinine Ratio 17 Glucose 174 H Calculated Osmolality 281 Calcium 9.9 Magnesium 1.6 Total Bilirubin 0.25 AST 148 H ALT 381 H Alkaline Phosphatase 269 H Creatine Kinase 66 Troponin T High Sens [id number] Pept Total Protein 7.2 Albumin 3.7 Globulin 3.5 Albumin/Globulin Ratio 1.1 Lipase 13 Plasma Lactate 0.6 Urine Source Urine Color Urine Turbidity Urine pH Ur Specific [place] Urine Protein Ur Glucose (Stick) Ur Ketones (Stick) Urine Blood Urine Nitrite Urine Bilirubin Urobilinogen Dipstick Urine Leukocytes Urine WBC (Auto) Urine RBC (Auto) U Epithel Cells (Auto) Urine Bacteria (Auto) Acetone Level 12/14/19 12/14/19 12/14/19 02:18 02:18 02:18 WBC 16.03 H RBC 4.11 L Hgb 11.0 L Hct 33.2 L MCV 80.8 L MCH 26.8 L MCHC 33.1 RDW Std Deviation 14.3 Plt Count 288 MPV 11.0 H Immature Gran % (Auto) 0.2 Neut % (Auto) 49.2 Lymph % (Auto) 38.8 [place] % (Auto) 5.6 Eos % (Auto) 5.1 Baso % (Auto) 1.1 H Immature Gran # (Auto) 0.04 Neut # (Auto) 7.89 H Lymph # (Auto) 6.22 H [place] # (Auto) 0.89 H Eos # (Auto) 0.82 H Baso # (Auto) 0.17 PT INR Specimen Type Sample Site pH pCO2 pO2 HCO3 Base Excess Oxyhemoglobin ABG O2 Sat (Calculated) ABG O2 Saturation ABG Carboxyhemoglobin ABG Methemoglobin Daniel Test A-a O2 Difference Total Hemoglobin Lactate Blood Gas Modality FiO2 % Sodium Potassium Chloride Carbon Dioxide Anion Gap BUN Creatinine Estimated GFR/1.73 m2 BUN/Creatinine Ratio Glucose Calculated Osmolality Calcium Magnesium Total Bilirubin AST ALT Alkaline Phosphatase Creatine Kinase Troponin T High Sens 22 H Tty-W-Vrayhwyhmvr Pept 625 H Total Protein Albumin Globulin Albumin/Globulin Ratio Lipase Plasma Lactate Urine Source Urine Color Urine Turbidity Urine pH Ur Specific [place] Urine Protein Ur Glucose (Stick) Ur Ketones (Stick) Urine Blood Urine Nitrite Urine Bilirubin Urobilinogen Dipstick Urine Leukocytes Urine WBC (Auto) Urine RBC (Auto) U Epithel Cells (Auto) Urine Bacteria (Auto) Acetone Level 12/14/19 12/14/19 12/14/19 02:18 02:18 02:49 WBC RBC Hgb Hct MCV MCH MCHC RDW Std Deviation Plt Count MPV Immature Gran % (Auto) Neut % (Auto) Lymph % (Auto) [place] % (Auto) Eos % (Auto) Baso % (Auto) Immature Gran # (Auto) Neut # (Auto) Lymph # (Auto) [place] # (Auto) Eos # (Auto) Baso # (Auto) PT 12.6 INR 0.94 Specimen Type Sample Site pH pCO2 pO2 HCO3 Base Excess Oxyhemoglobin ABG O2 Sat (Calculated) ABG O2 Saturation ABG Carboxyhemoglobin ABG Methemoglobin Daniel Test A-a O2 Difference Total Hemoglobin Lactate Blood Gas Modality FiO2 % Sodium Potassium Chloride Carbon Dioxide Anion Gap BUN Creatinine Estimated GFR/1.73 m2 BUN/Creatinine Ratio Glucose Calculated Osmolality Calcium Magnesium Total Bilirubin AST ALT Alkaline Phosphatase Creatine Kinase Troponin T High Sens Kpo-T-Vhdiddfgqrh Pept Total Protein Albumin Globulin Albumin/Globulin Ratio Lipase Plasma Lactate Urine Source CATH Urine Color YELLOW Urine Turbidity CLEAR Urine pH 6.0 Ur Specific [place] 1.014 Urine Protein TRACE A Ur Glucose (Stick) 150 A Ur Ketones (Stick) NEGATIVE Urine Blood NEGATIVE Urine Nitrite NEGATIVE Urine Bilirubin NEGATIVE Urobilinogen Dipstick NORMAL Urine Leukocytes TRACE A Urine WBC (Auto) <10 Urine RBC (Auto) <10 U Epithel Cells (Auto) <10 Urine Bacteria (Auto) NEGATIVE Acetone Level NEGATIVE Orders Category Date Time Status Nursing- Obtain EKG once Care 12/14/19 02:16 Active Saline Loc NOW Care 12/14/19 02:16 Active Straight Catheterization ORDERED Care 12/14/19 03:02 Active CHEST-PORTABLE [RAD] Stat Exams 12/14/19 02:[address] ABDOMEN/PELVIS W/O CONTRAST [CT] Stat Exams 12/14/19 04:21 Taken ABG [RESP] Routine Lab 12/14/19 02:16 Completed ACETONE SERUM [CHEM] Stat Lab 12/14/19 02:18 Completed BLOOD CULTURE [BLDCUL] Stat Lab 12/14/19 02:35 Results CBC WITH ELECTRONIC DIFF [HEME] Stat Lab 12/14/19 02:18 Completed CK TOTAL [CHEM] Stat Lab 12/14/19 02:18 Completed COMPREHENSIVE METABOLIC PANEL [CHEM] Stat Lab 12/14/19 02:18 Completed DIRECT STREP Stat Lab 12/14/19 02:52 Completed INFLUENZA SCREEN A/B Stat Lab 12/14/19 02:52 Completed LACTATE, PLASMA [CHEM] Stat Lab 12/14/19 02:18 Completed LIPASE [CHEM] Stat Lab 12/14/19 02:18 Completed MAGNESIUM [CHEM] Stat Lab 12/14/19 02:18 Completed PRO B-NATRIURETIC PEPTIDE Stat Lab 12/14/19 02:18 Completed PROTIME WITH INR [COAG] Stat Lab 12/14/19 02:18 Completed SPUTUM CULTURE WITH GRAM STAIN [RM] Stat Lab 12/14/19 02:17 Uncollected TROPONIN T HIGH SENSITIVITY Stat Lab 12/14/19 02:18 Completed URINALYSIS W/POSS RFLX CULT [URINALYSIS] Stat Lab 12/14/19 02:49 Completed URINE CULTURE [RM] Routine Lab 12/14/19 02:49 Received 0.9% Sodium Chloride Inj [Ns] 1,000 ml Med 12/14/19 02:18 Discontinued IV 999 mls/hr CefEPIME [Maxipime] 1 gm Med 12/14/19 02:19 Discontinued 0.9% Sodium Chloride Inj [Ns] 50 ml IV NOW CefEPIME [Maxipime] 1 gm Med 12/14/19 03:09 Discontinued 0.9% Sodium Chloride Inj [Ns] 50 ml IV NOW Pharmacy Order [Vancomycin IV Per Pharmacy] Med 12/14/19 02:30 Active 1 each MISC DIRECTED Vancomycin 1,250 mg Med 12/15/19 16:30 Active 0.9% Sodium Chloride Inj [Ns] 250 ml IV Q36H Vancomycin 1,450 mg Med 12/14/19 04:30 Active 0.9% Sodium Chloride Inj [Ns] 250 ml IV NOW EKG [EKG] Stat Ther 12/14/19 02:16 Draft Result Diagrams: 12/14/19 02:18 12/14/19 02:18 - REASSESSMENT Reassessment #1 Time Reassessed: 04:09 Status: improving (The charge nurse applied for COVID testing through [facility] website and it was denied. Given Vanc and Maxipime for antbiotics. Old chart reviewed, LFT elevation is new, will check CT scan. Patient also has UTI) - EKG 1 Time of EKG reading by physician:: 03:35 EKG Read and Signed by:: Ambrosio Hickey EKG Interpretation (*Must complete 3 of following elements*): Abnormal Rate: 81 Rhythm: NSR QRS: Q Waves present (septal), poor R wave progression, LVH CA Interval: prolonged ST Wave: non-specific ST changes Comments: prolonged QTc - XRAY 1 XRAY Study: Chest Impression: Abnormal (Read by me at 0254: Normal cardiac silhouette, no infiltrates, lingula nodule, approx 1cm) - CT/MRI 1 CT Study: Abdomen, Pelvis Impression: Abnormal (per [facility] Dr. Tolentino: IMPRESSION: Subtle stranding adjacent to head of pancreas, possibility of pancreatitis. No other abnormality is appreciated) - CONSULTS/PCP/HOSPITALIST Notification #1 *Consult/PCP/Hospitalist*: Aramis Time Discussed: 05:14 Consult Disposition: Will see in ED, Admit Departure - Departure Date of Disposition Decision: 12/14/19 Time of Disposition Decision: 05:12 DIAGNOSIS: Fever in adult, Elevated LFTs, Exposure to viral disease Urinary tract infection Qualifiers: Urinary tract infection type: acute cystitis Hematuria presence: with hematuria Qualified Code(s): N30.01 - Acute cystitis with hematuria Disposition: ADMITTED INPATIENT 09 Certified Medical Emergency: Emergent Condition: Fair Referrals and Follow-Ups: Chapin Avina MD [Primary Care Provider] - - Critical Care Note This patient required my direct & personal management of CC.: No Attestation - Physician/ KATE Attestation Patient care was provided by Advanced Practice Provider:: No The physician spent face to face time with patient:: Yes Advanced Practice Provider documentation review:: Supervising physician onsite and consulted in the evaluation and care of this patient. The physician did have a face to face encounter with the patient.
[2019-12-14 02:50] LABS: ALLEN TEST YES; BE 1.5 mmoll (-3.0-3.0); BLOOD TYPE ARTERIAL; HCO3-(ACT) 26.1 mmoll (20.0-26.0); METHB 0.7 % (0.0-1.5); O2HB 95.6 % (95.0-99.0); PCO2(98.6) 39 mmHg (35-45); PO2(98.6) 83 mmHg (60-100); SAMPLE BLOOD; SAO2 97.2 % (95.0-100.0); THB 11.1 g/dL (11.5-17.4); pH(98.6) 7.43 (7.35-7.45)
[2019-12-14 02:51] LABS: MODALITY ROOM AIR
[2019-12-14 03:04] LABS: URINE SOURCE CATH
[2019-12-14 03:09] LABS: BILIRUBIN URINE NEGATIVE (NEGATIVE); BLOOD URINE NEGATIVE (NEGATIVE); COLOR YELLOW; GLUCOSE URINE 150 mg/dL (NEGATIVE); KETONE URINE NEGATIVE (NEGATIVE); LEUKOCYTES URINE TRACE (NEGATIVE); NITRITE URINE NEGATIVE (NEGATIVE); PROTEIN URINE TRACE mg/dL (NEGATIVE); SP GRAVITY URINE 1.014; TURBIDITY URINE CLEAR (CLEAR); UROBILINOGEN URINE NORMAL (NORMAL)
[2019-12-14 03:10] LABS: UR EPITHELIAL CELLS <10 /HPF (<10); URINE BACTERIA NEGATIVE /HPF; URINE RBC <10 /HPF (<10); URINE WBC <10 /HPF (<10)
[2019-12-14 03:18] LABS: INR 0.94; PROTIME 12.6 Seconds (11.0-16.0)
[2019-12-14 03:24] LABS: BASO# 0.17 X1000 (0.0-0.2); BASO% 1.1 % (0.0-0.8); EOS# 0.82 X1000 (0.0-0.7); EOS% 5.1 % (0.0-10.0); HEMATOCRIT 33.2 % (37.0-47.0); IMM GRAN# 0.04 X1000 (0.0-0.04); IMM GRAN% 0.2 % (0.0-0.5); LYMPH# 6.22 X1000 (1.2-3.4); LYMPH% 38.8 % (20.5-51.1); MCH 26.8 PG (27-31); MCHC 33.1 g/dL (33-37); MCV 80.8 FL (81-99); MONO# 0.89 X1000 (0.11-0.59); MONO% 5.6 % (1.7-9.3); NEUT# 7.89 X1000 (1.4-6.5); NEUT% 49.2 % (42.2-75.2); PLT 288 X1000 (130-400); RBC 4.11 XMIL (4.2-5.4); RDW 14.3 % (11.5-14.5); WBC 16.03 X1000 (4.8-10.8)
[2019-12-14 03:47] LABS: ALB/GLOB RATIO 1.1; ALBUMIN 3.7 g/dL (3.5-5.0); CALCIUM 9.9 mg/dL (8.8-10.2); CREATININE 1.5 mg/dL (0.5-0.9); MAGNESIUM 1.6 mg/dL (1.5-2.7); POTASSIUM 4.8 mmol/L (3.5-5.1); TOTAL BILIRUBIN 0.25 mg/dL (0.20-1.00); TOTAL PROTEIN 7.2 g/dL (6.3-8.3)
[2019-12-14] MEDS ORDERED: VANCOMYCIN 1,450 MG in NS 250 ML IV ONE (04:30)
--- NOTE | 2019-12-14 04:50 | EKG Report ---
Test Performed on : 12/14/2019 03:32:53 AM Test Reason : sob Blood Pressure : / mmHG Vent. Rate : 081 BPM Atrial Rate : 081 BPM P-R Int : 194 ms QRS Dur : 106 ms QT Int : 440 ms P-R-T Axes : 054 -24 127 degrees QTc Int : 511 ms Normal sinus rhythm. Septal infarct , age undetermined T wave abnormality, consider lateral ischemia Prolonged QT Abnormal ECG When compared with ECG of 11-NOV-2019 16:36, (Unconfirmed) Septal infarct is now present Unconfirmed Result
--- NOTE | 2019-12-14 06:17 | HISTORY AND PHYSICAL ---
PRIMARY CARE PROVIDER: Chapin Avina MD. CHIEF COMPLAINT: Abdominal pain. HISTORY OF PRESENTING ILLNESS: A 54-year-old female with a history of hypertension, diabetes mellitus type 2, CVA, [place], who apparently was at [facility] for treatment of a CVA who, apparently, was sent from the long term due to patient having supposed fever. Apparently, there were several cases at the long term that tested for positive for COVID-19. She was seen in the ED and basically she did not meet criteria for testing, as per [facility]. At time of my examination, patient did not have any fever. She had she denied any chest pain, shortness of breath, hemoptysis or weight changes. States that she was just having some abdominal discomfort. PAST MEDICAL HISTORY: Includes hypertension, diabetes mellitus type 2, CVA, [place], depression, back pain. PAST SURGICAL HISTORY: Appendectomy, cholecystectomy, hysterectomy. ALLERGIES: Aspirin, hydromorphone, diphenhydramine. CURRENT MEDICATIONS: Amlodipine 10 mg p.o. daily, aspirin 325 mg p.o. daily, atorvastatin 40 mg p.o. at bedtime, citalopram 40 mg p.o. daily, clonidine 0.1 mg p.o. t.i.d., Plavix 75 mg p.o. daily, hydralazine 25 mg p.o. t.i.d., [place] 10/325 one p.o. q.6 hours, NovoLog FlexPen, dose not noted, Lantus 60 units subcutaneous daily, losartan 100 mg p.o. daily, omeprazole 40 mg p.o. daily. SOCIAL HISTORY: She has been smoking for the past 5 years. She denies any history of alcohol or illicit drug use. FAMILY HISTORY: No history of coronary disease. REVIEW OF SYSTEMS: Fourteen point review of systems is as in HPI. Other systems negative. PHYSICAL EXAMINATION: GENERAL: Cooperative, friendly female. She is resting comfortably now. VITAL SIGNS: Temperature 98.3 degrees, pulse 89, respirations 17, blood pressure 154/89. HEENT: Atraumatic, normocephalic. Extraocular movements intact. PERRLA. NECK: Supple. CHEST: Clear to auscultation. CARDIOVASCULAR: Regular rate and rhythm. ABDOMEN: Soft. Positive bowel sounds with possibly some mild tenderness. EXTREMITIES: Trace edema. NEUROLOGIC: She is awake, alert, oriented x3. GENITOURINARY: No bladder distention. SKIN: Warm. LABORATORIES AND STUDIES: WBC 16.03, hemoglobin 11.0, hematocrit 33.2, platelets 288,000. Sodium 136, potassium 4.8, chloride 100, CO2 is 22, BUN is 25, creatinine is 1.5. Glucose 174, AST is 148, ALT is 381, alkaline phosphatase 269. Abdominal and pelvis CT results still pending. ASSESSMENT: This is a 54-year-old female with a history of hypertension, diabetes mellitus type 2, CVA, [place], who has some residual right-sided weakness, was sent from [facility] due to patient possibly having fever and abdominal discomfort. She is brought to the emergency department. She was she did not meet criteria for COVID-19 testing as per a [facility], however, she did have abdominal discomfort and subsequently was thought that we will place in for observation for further evaluation and management. ASSESSMENT: 1. Abdominal pain, unclear etiology. 2. Abnormal liver function tests. 3. Possible fever. However, none was noted at the ED. 4. Multiple patients at long term had exposure, tested positive for COVID-19. 5. Diabetes mellitus type 2. 6. Hypertension. PLAN: 1. We will admit patient to medical floor with telemetry. 2. We will keep patient on clear fluids and continue with supportive treatment. 3. We will check an abdominal ultrasound. 4. We will monitor blood glucose and put patient on sliding scale insulin regimen. 5. We will monitor blood pressure and resume antihypertensive agent. 6. We will put patient on DVT prophylaxis with SCD. 7. We will continue to follow and reassess, make further recommendation based on patient's clinical course. cc: Jesus Self MD
[2019-12-14] MEDS ORDERED: ZOFRAN IV PRN (07:09)
--- NOTE | 2019-12-14 08:28 | Diag Imaging Result Doc PS360 ---
EXAM: CHEST-PORTABLE INDICATION: fever, cough TECHNIQUE: One view COMPARISON: 11/11/2019 FINDINGS: There are pulmonary nodules in the lingula as well as the left lower lobe that have been stable for many years and probably represent granulomata. The lungs are grossly clear, otherwise. There is no discrete pleural fluid collection or pneumothorax. The cardiomediastinal silhouette and central vasculature are grossly unremarkable. IMPRESSION: Long-term stability of pulmonary nodules on the left. No definite acute chest pathology by plain radiograph. Electronically signed by Hector Zavala 12/14/2019 8:26 AM
[2019-12-14] MEDS: ASPIRIN PO SCH (09:37)
[2019-12-14] MEDS: CATAPRES PO SCH ×3 (09:37→17:47)
[2019-12-14] MEDS: PLAVIX PO SCH (09:37)
[2019-12-14] MEDS: NS 1,000 ML IV SCH ×2 (09:37→22:27)
[2019-12-14] MEDS: CELEXA PO SCH (09:37)
[2019-12-14] MEDS: NORCO-10 PO PRN ×2 (09:38→15:47)
[2019-12-14] MEDS: COZAAR PO SCH (09:38)
[2019-12-14] MEDS: NORVASC PO SCH (09:38)
--- NOTE | 2019-12-14 09:50 | Diag Imaging Result Doc PS360 ---
EXAM: CT ABDOMEN/PELVIS W/O CONTRAST INDICATION: elevated lfts, fever TECHNIQUE: This exam was performed using automated exposure control, adjustment of mA or kV according to patient size, and/or use of iterative reconstruction technique. COMPARISON: 05/07/2017 FINDINGS: There is mild subsegmental atelectasis at the left lung base. There are two prominent noncalcified circumscribed nodules in the lingula and the left lower lobe that have been stable as compared to multiple previous studies indicating benignity, likely granulomata. There has been a prior cholecystectomy. There is stable mild compensatory biliary dilatation. The liver is grossly unremarkable. The spleen, pancreas, adrenal glands, kidneys, and urinary bladder are essentially unremarkable. There has been a prior hysterectomy. The appendix is not clearly identified. There is no secondary sign of appendicitis. There is abundant stool seen throughout the colon suggesting possible mild constipation/obstipation. No definite bowel wall thickening or bowel obstruction is appreciated. The remainder of the GI tract is grossly unremarkable as imaged. No focal inflammatory changes, free abdominal gas, or free fluid is appreciated. There is no evidence of acute osseous abnormality. IMPRESSION: 1.Possible mild constipation/obstipation. 2.Other incidental/nonacute findings detailed above. Electronically signed by Hector Zavala 12/14/2019 9:47 AM
[2019-12-14] MEDS: APRESOLINE PO SCH ×3 (11:04→17:48)
[2019-12-14] MEDS: PRILOSEC PO SCH (11:05)
[2019-12-14] MEDS: HUMULIN R SUBQ SCH ×3 (11:05→17:48)
--- NOTE | 2019-12-14 15:07 | PROGRESS NOTE ---
DATE: 12/14/2019 INTERVAL HISTORY: Patient is sent here from [facility] because of concern for possible fever. No fevers have been noted here. The patient's only complaint on presentation was mild abdominal pain with workup showing mild constipation but that is about it. She does today endorse some mild nonproductive cough which had been going on for about 2 days. She does have a bit of a white count. No other complaints. REVIEW OF SYSTEMS: Twelve point review of systems negative except as per interval history. LABS: WBC 16.0, hemoglobin 11.0, hematocrit 33.2, platelets 288,000. ABG unremarkable. Chemistry significant for creatinine 1.5, BUN 25, glucose 174. AST 148, ALT 381, alkaline phosphatase 269. Urinalysis essentially unremarkable. Acetone negative. IMAGING: CT of the abdomen and pelvis with mild constipation, otherwise largely unremarkable. Chest x-ray with stable pulmonary nodules favored to be granulomas. No acute process. ASSESSMENT AND PLAN: Possible fever at rehab. No fever, tachycardia, tachypnea, or hypoxia has been noted here. Patient initially endorsing only abdominal pain. Does endorse a little bit of a nonproductive cough today, which is backed up by nursing. There was concern that patient may have been in contact with Covid-19 positive people at the rehab. It was felt that she did not meet criteria for testing on admission. She would still be borderline for testing with her only criteria being cough. The patient reports she was near the end of her stay in rehab and has been doing quite well. I am inclined to get physical therapy to walk her in the room and if she does well, consider discharge home in the morning if there is no worsening of her clinical condition. If it looks like she is going to have to go back to rehab, we will reconsider testing at that time. We will go ahead and get an ultrasound of her abdomen, given mildly elevated liver function tests but suspect she just has some mild fatty liver. We will give some gentle fluids overnight given elevated creatinine, but looking at her previous creatinines, it is hard to tell exactly what her baseline is because it has varied a lot but she appears to be at least close to her baseline.
[2019-12-15] MEDS: HUMULIN R SUBQ SCH ×5 (00:42→22:25)
[2019-12-15] MEDS: MIRALAX PO SCH ×3 (00:43→22:24)
[2019-12-15] MEDS ORDERED: VANCOMYCIN IV PER PHARMACY MISC SCH (04:30)
[2019-12-15] MEDS: PRILOSEC PO SCH (07:25)
[2019-12-15 10:45] LABS: BASO# 0.13 X1000 (0.0-0.2); BASO% 0.7 % (0.0-0.8); EOS# 0.49 X1000 (0.0-0.7); EOS% 2.7 % (0.0-10.0); HEMATOCRIT 36.6 % (37.0-47.0); HEMOGLOBIN 12.1 g/dL (12.0-16.0); IMM GRAN# 0.05 X1000 (0.0-0.04); IMM GRAN% 0.3 % (0.0-0.5); LYMPH# 4.33 X1000 (1.2-3.4); LYMPH% 23.9 % (20.5-51.1); MCH 26.9 PG (27-31); MCHC 33.1 g/dL (33-37); MCV 81.5 FL (81-99); MONO# 0.53 X1000 (0.11-0.59); MONO% 2.9 % (1.7-9.3); MPV 11.1 FL (7.4-10.4); NEUT# 12.62 X1000 (1.4-6.5); NEUT% 69.5 % (42.2-75.2); PLT 296 X1000 (130-400); RBC 4.49 XMIL (4.2-5.4); RDW 14.7 % (11.5-14.5); WBC 18.15 X1000 (4.8-10.8)
[2019-12-15] MEDS: PLAVIX PO SCH (11:22)
[2019-12-15] MEDS: CATAPRES PO SCH ×3 (11:23→22:26)
[2019-12-15] MEDS: ASPIRIN PO SCH (11:23)
[2019-12-15] MEDS: APRESOLINE PO SCH ×3 (11:23→22:24)
[2019-12-15] MEDS: NORCO-10 PO PRN ×3 (11:23→22:26)
[2019-12-15] MEDS: CELEXA PO SCH (11:23)
[2019-12-15] MEDS: COZAAR PO SCH (11:23)
[2019-12-15] MEDS: NORVASC PO SCH (11:23)
[2019-12-15 12:41] LABS: ALBUMIN 4.1 g/dL (3.5-5.0); CREATININE 1.2 mg/dL (0.5-0.9); DIRECT BILIRUBIN 0.1 mg/dL (0.00-0.20); POTASSIUM 5.2 mmol/L (3.5-5.1); TOTAL BILIRUBIN 0.39 mg/dL (0.20-1.00); TOTAL PROTEIN 8.1 g/dL (6.3-8.3)
[2019-12-15] MEDS ORDERED: VANCOMYCIN 1,250 MG in NS 250 ML IV SCH ×2 (16:30→17:00)
[2019-12-15] MEDS ORDERED: LANTUS INSULIN SUBQ ONE (18:07)
--- NOTE | 2019-12-15 19:42 | PROGRESS NOTE ---
DATE: 12/15/2019 INTERVAL HISTORY: No acute events overnight. SUBJECTIVE: Ms Rivas denies any chest pain, shortness of breath, nausea or vomiting. She denies any abdominal pain. She states she has been able to go to the bathroom without any trouble. REVIEW OF SYSTEMS: The patient wants her diet to be advanced. Positive for right upper extremity, right lower extremity weakness. VITALS: Temperature 98.4 degrees, pulse 75, respiratory rate 20, blood pressure 110/56 saturating 100% room air. PHYSICAL EXAMINATION: Ms. Rivas is not in acute distress. Oral cavity has missing teeth. Air entry bilaterally equal. No wheeze, rhonchi or crackles. S1, S2 normal. Not tachycardic, no murmur, rub, or gallop.Abdomen: Soft, nontender. No lower extremity edema. She is alert, she is oriented x3, she was able to engage in meaningful conversation. Her tongue is slightly deviated towards the right. She otherwise does not appear to have obvious facial asymmetry. Extraocular movements are intact both sides of midline. She does have right upper extremity weakness and she was not able to do overhead abduction. Tone and power 5 in 5 left upper extremity. Left lower extremity she has mild weakness power 4 on 5 on right lower extremity especially hip and knee joints. LABS: Suggestive WBC of 18,000, hemoglobin 12.1, platelet 296,000. BUN suggestive of 19, creatinine 1.2, blood glucose 309. Microbiology 1 of the 2 blood cultures is positive. Urine culture has not shown any growth. ASSESSMENT AND PLAN: 1. Suspected sepsis of unclear source based on reported fever at rehab and leukocytosis on presentation, 1 of the 2 blood cultures positive for gram-positive cocci. Continue intravenous vancomycin and follow up with final blood culture results. 2. Suspected Coronavirus Disease 2019 exposure. This was a chief complaint along with mild fever that patient was sent over to the emergency room. However she did not meet criteria for Coronavirus Disease 2019 testing so we will keep her quarantined for 14 days, Coronavirus Disease 2019 testing was not sent. 3. Atorvastatin induced acute liver injury. Patient was admitted between November 12 and November 16. On November 12 she was not listed to be taking atorvastatin which was 1 of the discharge medication on November 16. Her transaminitis likely because of statin induced liver injury. I will hold atorvastatin and follow up with hepatitis panel and liver function test tomorrow. 4. History of recurrent cerebrovascular accident and history of essential hypertension. Continue home aspirin, clopidogrel. I will keep her on home hydralazine, losartan, amlodipine and clonidine. 5. History of insulin-dependent diabetes mellitus with hyperglycemia. Start patient on Lantus and sliding scale insulin. DISPOSITION: Patient is hemodynamically stable for discharge. We are awaiting final blood culture results. If the blood culture results are negative patient could be discharged back to rehab on December 15. If rehab does not accept her back patient could also be discharged to home since she has been able to come out of bed and go to the bathroom independently however she may need home physical therapy and occupational therapy. The only concern is patient lives with her 90 years old grandmother and she told me that she would not be able to make alternative arrangement for her grandmother if patient needed to remain quarantined. cc: Kingston Ham MD
[2019-12-16] MEDS: NORCO-10 PO PRN ×3 (02:22→16:55)
[2019-12-16] MEDS: PRILOSEC PO SCH (06:28)
[2019-12-16] MEDS ORDERED: LANTUS INSULIN SUBQ SCH (09:00)
[2019-12-16] MEDS: CATAPRES PO SCH ×2 (10:07→14:44)
[2019-12-16] MEDS: ASPIRIN PO SCH (10:07)
[2019-12-16] MEDS: COZAAR PO SCH (10:07)
[2019-12-16] MEDS: CELEXA PO SCH (10:07)
[2019-12-16] MEDS: APRESOLINE PO SCH ×2 (10:07→14:44)
[2019-12-16] MEDS: PLAVIX PO SCH (10:07)
[2019-12-16] MEDS: NORVASC PO SCH (10:07)
[2019-12-16] MEDS: MIRALAX PO SCH (10:08)
[2019-12-16 10:43] LABS: BASO# 0.18 X1000 (0.0-0.2); BASO% 1.3 % (0.0-0.8); EOS% 4.2 % (0.0-10.0); HEMATOCRIT 33.2 % (37.0-47.0); HEMOGLOBIN 10.7 g/dL (12.0-16.0); IMM GRAN# 0.03 X1000 (0.0-0.04); IMM GRAN% 0.2 % (0.0-0.5); LYMPH# 5.12 X1000 (1.2-3.4); LYMPH% 35.8 % (20.5-51.1); MCH 26.4 PG (27-31); MCHC 32.2 g/dL (33-37); MONO# 0.76 X1000 (0.11-0.59); MONO% 5.3 % (1.7-9.3); MPV 11.1 FL (7.4-10.4); NEUT# 7.63 X1000 (1.4-6.5); NEUT% 53.2 % (42.2-75.2); PLT 288 X1000 (130-400); RBC 4.05 XMIL (4.2-5.4); RDW 14.6 % (11.5-14.5); WBC 14.32 X1000 (4.8-10.8)
[2019-12-16 11:02] LABS: ALB/GLOB RATIO 1.2; ALBUMIN 4.1 g/dL (3.5-5.0); CALCIUM 9.7 mg/dL (8.8-10.2); CREATININE 1.2 mg/dL (0.5-0.9); POTASSIUM 5.2 mmol/L (3.5-5.1); TOTAL BILIRUBIN 0.28 mg/dL (0.20-1.00); TOTAL PROTEIN 7.6 g/dL (6.3-8.3)
[2019-12-16 11:08] LABS: C REACTIVE PROT QUANT 1.2 mg/L (0.00-5.00)
[2019-12-16 11:12] LABS: HEPATITIS PROFILE ACUTE SEE COMMENTS
[2019-12-16] MEDS: HUMULIN R SUBQ SCH ×3 (14:30→16:54)
[2019-12-16 16:20] VITALS: BP 148/75
--- NOTE | 2019-12-16 17:32 | DISCHARGE SUMMARY ---
ADMISSION DATE: 12/14/2019 DISCHARGE DATE: 12/16/2019 DISPOSITION: Home with instructions for self quarantine for 14 days. CONSULTATION DURING THIS ADMISSION: None. INVASIVE PROCEDURES DONE DURING THIS ADMISSION.: None. IMAGING/STUDIES OF SIGNIFICANCE: 1. Chest x-ray did show long-term stability of pulmonary nodules on the left. No definite pathology by chest x-ray. 2. CT scan of the abdomen and pelvis did show possible mild constipation/obstipation. ADMISSION DIAGNOSES: 1. Abdominal pain. 2. Abnormal liver enzymes. 3. Possible fever. 4. Diabetes mellitus. 5. Hypertension. DIAGNOSES AT THE TIME OF DISCHARGE: 1. Sepsis of unclear source, presumably from bronchopneumonia. 2. Transaminitis most likely due to atorvastatin induced liver injury versus steatohepatitis. 3. Hypertension. 4. Diabetes mellitus, insulin dependent. 5. Recently diagnosed cerebrovascular accident. 6. Abdominal pain secondary to constipation/obstipation. DISCHARGE MEDICATIONS: 1. Omeprazole 40 mg p.o. daily. 2. Clopidogrel 75 mg p.o. daily. 3. Losartan 100 mg p.o. daily. 4. Clonidine 0.1 p.o. three times per day. 5. Hydralazine 25 mg p.o. three times per day. 6. Citalopram 40 mg p.o. at bedtime. 7. Insulin Lantus 60 units subcutaneous daily. 8. Doxycycline 100 mg b.i.d. 9. Levofloxacin 500 mg p.o. daily. 10. Crestor 20 mg p.o. daily. 11. [place] 10 mg p.o. every six hours p.r.n. PRESENTING COMPLAINT: Abdominal pain. HISTORY OF PRESENTING COMPLAINT: Ms Rivas is a 54-year-old female with multiple comorbidities who was recently discharged to [facility] after she had a CVA. She seems to have been doing fairly okay in the rehab, until she started having fever. Apparently there has been some exposure to COVID-19 patients over there, so she was brought in for evaluation. Unfortunately, after she was screened, as per [facility], she did not qualify to be tested for COVID-19, so she was admitted to the medical floor under precautions and was treated for a bronchopneumonia, institution acquired. Ms Rivas was started on IV antibiotics which she did respond very well. She became afebrile during the hospital course. She was found to have elevated liver enzymes, which was presumed to have been contributed to atorvastatin, so this was discontinued and she was started on Crestor, which is a more water-soluble statin and hopefully does not have the same liver injury /toxicity as the lipid statins. Today, Ms. Rivas refers to be doing a lot better. Clinically she remained stable. Vitals are within normal range. She has been afebrile for more than 48 hours. We think she is stable to be discharged. She has been advised to remain in self quarantine for a total of 14 days. Continue with her antibiotics and follow up with her primary care doctor. All the discharge instructions have been discussed with her. She voiced understanding. TIME SPENT FOR DISCHARGE: 35 minutes. cc: MD Dr. Dina Orlando
== END 2019-12-16 17:23 | disposition home or self-care (01) | DRG 871 ==
LOC: SUPCPDRO → ED 02:07 → SUATTDRO 06:04 → 4N 06:04
PROVIDERS: ATTEND Internal Medicine